=== PATIENT | male | born 1945 | race Caucasian/White ===

== ENCOUNTER → 2018-07-16 07:18 | Outpatient (CLI) | payer MEDICARE, OTHER, SELFPAY ==
--- NOTE | 2018-07-16 13:04 | PFTCOMP ---
COMPLETE PULMONARY FUNCTION TEST INTERPRETATION Brief HPI: Patient is a 73 year old male, currently under the care of Dr. Brown, who presents to [facility] for complete pulmonary function tests secondary to diagnosis of dyspnea. Respiratory therapist reports good effort and reproducible results. Interpretation: Forced expiration spirometry shows no large airways obstructive ventilatory defect with an FEV1 of 118% predicted. There is no significant bronchodilator response by strict ATS criteria. Spirograms are of good quality and plateau normally. The respiratory flow volume loop shows a normal pattern. Lung volumes by body plethysmography show a normal total lung capacity at 7.72 L, 115% predicted. All other lung volumes are within normal limits. Diffusion capacity by carbon monoxide is normal at 119% predicted. The airway resistance is normal. No previous pulmonary function tests were available for review. Impression: Normal pulmonary function testing
--- NOTE | 2018-07-16 13:09 | PFTCOMP_ITS ---
COMPLETE PULMONARY FUNCTION TEST INTERPRETATION Brief HPI: Patient is a 73 year old male, currently under the care of Dr. Brown, who presents to [facility] for complete pulmonary function tests secondary to diagnosis of dyspnea. Respiratory therapist reports good effort and reproducible results. Interpretation: Forced expiration spirometry shows no large airways obstructive ventilatory defect with an FEV1 of 118% predicted. There is no significant bronchodilator response by strict ATS criteria. Spirograms are of good quality and plateau normally. The respiratory flow volume loop shows a normal pattern. Lung volumes by body plethysmography show a normal total lung capacity at 7.72 L, 115% predicted. All other lung volumes are within normal limits. Diffusion capacity by carbon monoxide is normal at 119% predicted. The airway resistance is normal. No previous pulmonary function tests were available for review. Impression: Normal pulmonary function testing
== END ==
DX: R06.02 Shortness of breath (principal)
CPT/HCPCS: 94060; 94726; 94729

== ENCOUNTER → 2018-07-25 11:53 | Outpatient (CLI) | payer MEDICARE, OTHER, SELFPAY ==
[2018-07-25 12:57] LABS: PSA,Total- Diagnostic 3.72 ng/mL (0.0-4.0)
== END ==
PROVIDERS: Referring Provider Nurse Practitioner Adult Health; Visit Provider Nurse Practitioner Adult Health
DX: R97.20 Elevated prostate specific antigen [PSA] (principal)
CPT/HCPCS: 36415; 84153

== ENCOUNTER 2020-05-10 21:25 | Observation (INO) | payer MEDICARE, OTHER, SELFPAY ==
[2020-04-09 11:07] VITALS: BMI 34.3
[2020-05-10 20:24] VITALS: BMI 33.5
[2020-05-10 20:25] VITALS: BP 157/77; PULSE 75; RESP 16; TEMP 36.4; O2SAT 93
[2020-05-10 20:31] VITALS: BMI 33.5
[2020-05-10 21:47] VITALS: BMI 33.5
[2020-05-10] MEDS: 0.9% Normal Saline 1,000 ML 50 ML IV (23:49)
[2020-05-11] VITALS (10 sets, daily range): BP systolic 123–151; BP diastolic 58–84; PULSE 53–93; RESP 16–18; TEMP 36.1–37.3; O2SAT 93–96; BMI 33.5
--- NOTE | 2020-05-11 05:00 | RAD_ITS ---
STUDY: X-RAY - ABDOMEN/PELVIS REASON FOR EXAM: Male, 75 years old. LT URETERAL STONE TECHNIQUE: Single AP view of the abdomen / pelvis. COMPARISON: None. FINDINGS: Normal visualized lung bases. There is a moderate amount of colonic fecal material. There is a 7.7 mm calculus in the proximal portion of the left ureter just distal to the ureteropelvic junction. Normal soft tissue structures. There are diffuse degenerative changes of the visualized lumbar spine. Prior bilateral hip replacements. RAD/Abdomen Single View IMPRESSION: 7.7 mm calculus in the proximal left ureter in the region of the ureteropelvic junction. Electronically Signed: Yohannes Partida MD at 8:37 EST , Service support ,
[2020-05-11 05:43] LABS: Hematocrit 40.3 % (40-54); Hemoglobin 13.3 g/dL (13.0-16.5); Mean Corpuscular Hgb 31.7 pg (27.0-32.0); Mean Corpuscular Volume 96.2 fL (80-94); Mean Platelet Vol. 9.5 fl (6.2-12.0); Platelet Count 169 K/mm3 (150-450); RBC Distribution Width CV 12.9 % (11.6-14.6); RBC Distribution Width SD 46.2 fl (35.1-43.9); Red Blood Count 4.19 M/mm3 (4.6-6.2)
--- NOTE | 2020-05-11 06:00 | EKG12_ITS ---
Test Reason : PRE-OP Blood Pressure : / mmHG Vent. Rate : 057 BPM Atrial Rate : 057 BPM P-R Int : 152 ms QRS Dur : 096 ms QT Int : 470 ms P-R-T Axes : 045 027 097 degrees QTc Int : 457 ms Sinus bradycardia Inferior infarct , age undetermined , cannot be excluded Abnormal ECG Confirmed by ZENY MARINA, JOSSELINE ([id number]), manuscript editor CAILIN CASEY ([id number]) on 05/12/2020 9:33:16 AM Referred By: Ty Toscano Confirmed By:JOSSELINE MOURA MD
[2020-05-11 06:09] LABS: Anion Gap 7 (5-15); BUN 11 mg/dL (7-18); BUN/Creat Ratio 12.4 RATIO (10-20); Calcium,Total 8.8 mg/dL (8.5-10.1); Chloride 109 mmol/L (98-107); Creatinine, Serum 0.89 mg/dL (0.70-1.30); EST Glomerular Filtration Rate 89 mL/min (>60); Est Glom Filt Rate - Afr Amer 108 mL/min (>60); Estimated Creatinine Clearance 77.56 ml/min; Glucose 103 mg/dL (74-106); Potassium 3.8 mmol/L (3.5-5.1); Sodium Level 141 mmol/L (136-145); Thyroid Stim Hormone (TSH) 3.69 uIU/mL (0.358-3.74)
--- NOTE | 2020-05-11 07:23 | PCM.HP.STD ---
Problem List (1) Left ureteral calculus Status: Acute (2) Right renal mass Status: Acute History of Present Illness Date of Admission: 05/10/20 Chief Complaint: Admitted for kidney stone and right renal mass. The patient is a 75 year old male who presented to the hospital he has a 10 mm stone in the left UPJ causing obstruction. Also on the CAT scan he demonstrates a large mass in the right kidney consistent with a malignancy. Plan to treat the stone first and then he may require intervention for the mid renal mass later on. Past Medical History Allergies No Known Allergies Allergy (Verified 04/09/20 11:08) Home Medications: Ambulatory Orders Medication Instructions Recorded Acetaminophen [Acetaminophen Extra 1,000 mg PO Q8H PRN PRN 05/10/20 Strength] Amlodipine Besylate/Benazepril 1 ea PO DAILY 05/10/20 [Amlodipine-Benazepril 5-10 mg] Aspirin [Aspirin, Baby] 81 mg PO DAILY@0800 05/10/20 Icosapent Ethyl [Vascepa] 2 gm PO BID 05/10/20 Levothyroxine [Synthroid] 25 mcg PO DAILY 05/10/20 Multivit-Min/FA/Lycopen/Lutein 1 ea PO DAILY 05/10/20 [Centrum Silver Men Tablet] Nitroglycerin (INPATIENT USE) 0.4 mg SUBLINGUAL Q5M PRN 05/10/20 [Nitrostat] Ticagrelor [Brilinta] 60 mg PO BID 05/10/20 Surgical History: no surgical history Smoking Status: Never smoker Tobacco Use: Non-smoker Review of Systems Constitutional: Denies: Chills, Fever, Weight Change HEENT: Denies: Head Aches, Sinus Congestion, Sinus Drainage Cardiovascular: Denies: Chest Pain, Palpitations Respiratory: Denies: Cough, Shortness of breath at rest, Sputum production Gastrointestinal: Denies: Abdominal Pain, Nausea, Vomiting Genitourinary: Denies: Dysuria Musculoskeletal: Denies: Joint Pain, Joint Tenderness Skin: Denies: Rash, Wounds Neurological: Denies: Numbness, Tingling, Focal weakness Psychiatric: Denies: Anxiety, Depression, Homicidal Ideations, Suicidal Ideations Hematologic/ Lymphatic: Denies: Easy Bruising, Easy Bleeding VTE Information - Inpt Only VTE Present on Admission: No - Physical Exam Vitals/I&O's: Vital Signs Temp Pulse Resp BP Pulse Ox 97 F L 53 L 16 123/66 H 96 05/11/20 03:09 05/11/20 03:09 05/11/20 03:09 05/11/20 03:09 05/11/20 03:09 Oxygen Delivery Method CPAP Weight: 109.1 kg Body Mass Index (BMI) 33.5 Intake and Output for Last 24 Hours 05/09/20 05/10/20 05/11/20 23:59 23:59 23:59 Output Total 200 / 200 550 / 550 Balance -200 / -200 -550 / -550 General: Alert, Oriented x3, Cooperative HEENT: Atraumatic, PERRLA, EOMI, Normocephalic Neck: Supple, No JVD, Negative Carotid Bruits Lungs: Clear to auscultation, Normal air movement Cardiovascular: Regular rate, No murmurs Abdomen: Bowel Sounds Present, Soft, Non Tender Extremities: No edema, Capillary Refill Less than 3 Seconds Skin: No rashes, No breakdown Musculoskeletal: No Tenderness to Palpation of Joints or Extremities Neurological: Cranial nerves II-XII grossly intact Psych/Mental Status: Normal Affect, Appropriate Laboratory Results 05/11/20 05:30: WBC 7.0, RBC 4.19 L, Hgb 13.3, Hct 40.3, MCV 96.2 H, MCH 31.7, MCHC 33.0, RDW Std Deviation 46.2 H, RDW Coeff of Sweta 12.9, Plt Count 169, MPV 9.5 05/11/20 05:30: Sodium 141, Potassium 3.8, Chloride 109 H, Carbon Dioxide 25.0, Anion Gap 7, BUN 11, Creatinine 0.89, Estim Creat Clear Calc 77.56, Est GFR (MDRD) Af Amer 108, Est GFR (MDRD) Non-Af 89, BUN/Creatinine Ratio 12.4, Glucose 103, Calcium 8.8, TSH 3.69 Current Medications Acetaminophen (Acetaminophen 500 Mg Tablet) 1,000 mg PO Q8H PRN PRN PRN Reason: pain score 1-4 Amlodipine Besylate (Amlodipine 5 Mg Tablet) 5 mg PO DAILY KOFFI Sodium Chloride () 1,000 mls @ 50 mls/hr IV .Q20H KOFFI Last Admin: 05/10/20 23:49 Dose: 50 mls/hr Documented by: Levothyroxine Sodium (Levothyroxine 25 Mcg Tablet) 25 mcg PO DAILY@0600 [facility] Last Admin: 05/11/20 02:42 Dose: Not Given Documented by: Lisinopril (Lisinopril 10 Mg Tablet) 10 mg PO DAILY [facility] Morphine Sulfate (Morphine 2 Mg/Ml Syringe) 2 mg IV Q3H PRN PRN PRN Reason: pain level 5-10 Multivitamins/Minerals (Multivitamins,Ther W-Minerals [facility]t) [facility] Last Admin: 05/11/20 07:21 Dose: Not Given Documented by: Nitroglycerin (Nitroglycerin (Inpatient Use) 0.4 Mg Tab.Subl) 0.4 mg SUBLINGUAL Q5M PRN PRN Reason: chest pain Ondansetron HCl (Ondansetron 4 Mg/2 Ml Vial) 4 mg IV Q6H PRN PRN PRN Reason: NAUSEA/VOMITING Sodium Chloride (0.9% Saline Lock 10 Ml Syringe) 10 - 40 ml IV UD PRN PRN Reason: SALINE FLUSH Ticagrelor (Ticagrelor 60 Mg Tablet) 60 mg PO BID [facility] Last Admin: 05/11/20 07:21 Dose: Not Given Documented by: Assessment/Plan All Active Problems (Last Reviewed 04/09/20 @ 11:09 by Vanda Taylor) Left ureteral calculus (Acute) Right renal mass (Acute) Contact with or suspected exposure to other viral communicable disease (Acute) Admitted for kidney stone the left side and renal mass plan to take the surgery and place a stent he is on Brilinta and blood thinners so at this point I cannot treat the stone until I get cardiac clearance.
[2020-05-11] MEDS: Multivitamins,Ther W-Minerals Tablet 1 TABLET PO (08:02)
[2020-05-11] MEDS: Lisinopril 10 MG Tablet PO (08:02)
[2020-05-11] MEDS: Levothyroxine 25 MCG TABLET PO (08:02)
[2020-05-11] MEDS: amLODIPine 5 MG Tablet PO (08:03)
--- NOTE | 2020-05-11 13:14 | DCINST_ITS ---
Discharge Diet: Light diet - advance as tolerated Discharge Activity: Return to Normal Activity Call your doctor if your incision/area has: Sudden Increased Bleeding Call your doctor if you observe: Fever of 101 or Higher Suture Line Care: Avoid Pulling/Pushing, Avoid Pinching/Bending Allergies/Adverse Reactions: Allergies No Known Allergies Allergy (Verified 04/09/20 11:08) Medications to take at Discharge Acetaminophen [Acetaminophen Extra Strength] 1,000 mg PO Q8H PRN PRN 05/10/20 Amlodipine Besylate/Benazepril [Amlodipine-Benazepril 5-10 mg] 1 ea PO DAILY 05/10/20 Aspirin [Aspirin, Baby] 81 mg PO DAILY@0800 05/10/20 Icosapent Ethyl [Vascepa] 2 gm PO BID 05/10/20 Levothyroxine [Synthroid] 25 mcg PO DAILY 05/10/20 Multivit-Min/FA/Lycopen/Lutein [Centrum Silver Men Tablet] 1 ea PO DAILY 0 05/10/20 Nitroglycerin (INPATIENT USE) [Nitrostat] 0.4 mg SUBLINGUAL Q5M PRN 05/10/20 Ticagrelor [Brilinta] 60 mg PO BID 05/10/20 Primary Care Physician: Audelia Martinez DO [Primary Care Provider] - Test Results: Test results from this visit will be discussed in further detail at your follow- up appointment, if applicable. Please Follow Up With: Ty Toscano MD - [phone] When: please call to make an appointment.
[2020-05-11] MEDS: Cefazolin 2 GM in 0.9% Normal Saline 100 ML IV (13:16)
--- NOTE | 2020-05-11 13:58 | OP.PCM_ITS ---
Problem List (1) Left ureteral calculus Status: Acute (2) Right renal mass Status: Acute Report of Operation Date of Procedure: 05/11/20 Pre-Operative Diagnosis: left upj stone Post-Operative Diagnosis: same Surgery/Procedure Performed:: cysto and left stent placement and left ESWL Description of Surgical Findings:: Patient presents to the hospital for treatment of a kidney stone with shockwave lithotripsy. In the preoperative area and x-ray was done to confirm the location of the stone. The x-ray was reviewed and the stone location was rev iewed. In the preoperative setting I spoke with the patient regarding the treatment of the stone how the treatment would be conducted and the expectations after surgery. The patient understands there is a risk of bleeding and infection. Also discussed the very rare risk of hematoma or damage to the kidney. We also discussed the risk that the shockwave machine will fail to break the stone adequately and that the patient may need other surgical procedures. We also discussed the possibility that the patient may need a stent after the procedure. After reviewing the procedure with the patient, the patient is signed the consent form all the patient's questions were addressed and was taken back to the operating room for treatment of a kidney stone. Patient was taken back to the operating room, patient was identified by the nursing staff, we identified the side of the treatment and the patient side of treatment had been marked by my initials. The patient underwent general anesthetic and was placed supine on the lithotripter table. We then used fluoroscopy to identify the stone on the side. We then positioned the patient under the lithotripter and we used triangulation technique to identify the location of the stone and then we made sure that the stone was engaged in the F2 focal point of F2 Donier lithoprior machine. Once the patient was positioned appropriately and the stone was identified and placed in the F2 focal point of the lithotripter machine we then proceeded with shockwave lithotripsy. In the beginning the shockwave was delivered at a rate of 90 shocks per minute, we monitor the EKG for any ectopy. The power was slowly increased to 5 kV and subsequently at the 7 kV. We then proceeded with the treatment we move the therapy had around during the treatment to make sure the stone stayed in the F2 focal point during the entire treatment. Once the stone had broken up completely then we stopped the treatment a total of about 3000 shockwaves were delivered to the stone under fluoroscopic guidance. At this point the patient's anesthetic was reversed patient was extubated and taken back to the PACU in stable condition. The patient was given instructions to call the office to make an a follow-up appointment. Patient was taken back to the operating room after induction of general anesthesia, the patient was placed in dorsolithotomy position. The urethra and genitals were prepped and draped in usual sterile fashion. Using a 21 [place]ian rigid cystourethroscope the entire length of the urethra was normal then went into the bladder. Identified the trigone the left and right ureteral orifice. I then cannulated the Left orifice and advanced a wire up into the kidney. I then backloaded a 5 [place]ian open ended catheter over the wire and injected contrast to delineate the anatomy. After the retrograde was performed I then used fluoroscopic images and guidance to advanced a wire up into the kidney and over the 0.038 glidewire I advanced a 6 [place]ian by 26 cm double pigtail stent. I then pulled the 0.038 Glidewire off and the stent coiled in the kidney bladder good position. The bladder was then drained. We confirmed the position of the stent by fluoroscopy. We then used fluoroscopy to identify the stone on the left side. We then positioned the patient under the lithotripter and we used triangulation technique to identify the location of the stone and then we made sure that the stone was engaged in the F2 focal point of F2 Donier lithoprior machine. Once the patient was positioned appropriately and the stone was identified and placed in the F2 focal point of the lithotripter machine we then proceeded with shockwave lithotripsy. In the beginning the shockwave was delivered at a rate of 90 shocks per minute, we monitor the EKG for any ectopy. The power was slowly increased to 5 kV and subsequently at the 7 kV. We then proceeded with the treatment we move the therapy had around during the treatment to make sure the stone stayed in the F2 focal point during the entire treatment. Once the stone had broken up completely then we stopped the treatment a total of about 3000 shockwaves were delivered to the stone under fluoroscopic guidance. At this point the patient's anesthetic was reversed patient was extubated and taken back to the PACU in stable condition. The patient was given instructions to call the office to make an a follow-up appointment. Type of Anesthesia:: General Drains: stent left - Admit VTE Documentation VTE Present on Admission: No VTE Mechan Device Prophylaxis: SCD's
[2020-05-11] MEDS: Lactated Ringers 1,000 ML 100 ML IV (14:29)
== END 2020-05-11 18:08 | disposition home or self-care (01) ==
PROVIDERS: Admitting Provider Urology; Referring Provider Urology; Visit Provider Urology
PROC: (CPT 50590; principal; 2020-05-11 12:50)
DX: N20.2 Calculus of kidney with calculus of ureter (principal); N28.89 Other specified disorders of kidney and ureter; Z79.899 Other long term (current) drug therapy; Z79.82 Long term (current) use of aspirin; E07.9 Disorder of thyroid, unspecified; I10 Essential (primary) hypertension; G47.30 Sleep apnea, unspecified; R00.1 Bradycardia, unspecified
CPT/HCPCS: 00873; 50590; 52332; 36415; 74018; 80048; 84443; 85027; 87426; 93005; 96360; 96361; 99218; J7030; J7120; C1769; G0378; G0379; J2405

== ENCOUNTER → 2020-05-17 14:52 | Outpatient (CLI) | payer MEDICARE, OTHER, SELFPAY ==
[2020-05-11 11:01] VITALS: BMI 33.5
--- NOTE | 2020-05-17 15:24 | RAD_ITS ---
STUDY: X-RAY - ABDOMEN/PELVIS REASON FOR EXAM: Male, 75 years old. Ureteral calculus. TECHNIQUE: Two AP supine views of the abdomen and pelvis. COMPARISON: 05/11/2020 FINDINGS: Normal visualized lung bases. There is elevation right hemidiaphragm. There is an unremarkable bowel gas pattern. There is no demonstrated free abdominal air. The visualized liver, spleen and kidneys are grossly normal in size and morphology. There is now a left ureteral stent. The calculus seen to the left of the L4 vertebra on the previous study is no longer seen. Minimal contrast is seen in the left renal calyces. Normal soft tissue structures. There are no osseous changes. Again seen are degenerative changes of the lumbar spine and bilateral hip replacements. RAD/Abdomen Single View IMPRESSION: Left ureteral stent with absence of the ureteral calculus seen on the earlier study. The remainder of the findings are essentially unchanged. Electronically Signed: Tyshawn Smith DO at 16:30 EST Tel [phone], Service support ,
== END ==
PROVIDERS: Referring Provider Urology; Visit Provider Urology
DX: N20.1 Calculus of ureter (principal)
CPT/HCPCS: 74018

== ENCOUNTER → 2020-06-14 13:03 | Outpatient (CLI) | payer MEDICARE, OTHER, SELFPAY ==
[2020-05-11 11:01] VITALS: BMI 33.5
--- NOTE | 2020-06-14 13:15 | CT_ITS ---
STUDY: CT ABDOMEN AND PELVIS WITHOUT CONTRAST REASON FOR EXAM: Male, 75 years old. CALCULUS OF KIDNEY RADIATION DOSAGE (If Supplied By Facility): CTDIvol = ( 27.18 ) mGy, DLP = ( 1361.60 ) mGycm TECHNIQUE: Transaxial images were obtained from the dome of the diaphragm to the symphysis pubis without oral contrast, and without intravenous contrast. Sagittal and coronal images were reconstructed. Individualized dose optimization techniques were used for this CT. COMPARISON: Comparison is made with prior study dated 03/27/2009. FINDINGS: Mild scarring in the lateral aspect of the right lower lobe. Coronary artery calcification. Normal liver. There are multiple small gallstones. Normal spleen. Normal pancreas. Normal bilateral adrenal glands. There is evidence of a 5.8 cm x 6.3 cm cyst in the upper pole of the right kidney. There are 2, 3 mm nonobstructive calculi in the posterior aspect of the mid and lower pole calyces of the right kidney. There is evidence of a 7.7 cm x 8.7 cm heterogeneous mass in the lateral inferior pole of the right kidney. Punctate calcification is seen within it. A neoplastic process should be ruled out. Normal left kidney. Normal visualized stomach. Normal small intestine. Normal colon. The appendix is visualized and appears normal. Normal abdominal aorta. Normal inferior vena cava. Normal retroperitoneum. Normal urinary bladder. Normal abdominal wall. There are diffuse degenerative changes of the visualized lumbar spine. The urinary bladder and prostate are difficult to evaluate due to the beam hardening artifacts from bilateral hip replacement. CT/Abdomen/Pelvis without Cont IMPRESSION: Heterogeneous mass arising from the inferior pole of the right kidney as described. A neoplastic process should BE ruled out. 5.8 cm x 6.3 cm cyst in the upper pole of the right kidney. The heart to tiny nonobstructive calculi in the lower pole calyx of the right kidney. Multiple small gallstones. Electronically Signed: Yohannes Partida MD at 13:44 EDT , Service support ,
== END ==
PROVIDERS: Referring Provider Urology; Visit Provider Urology
DX: N20.0 Calculus of kidney (principal); N28.1 Cyst of kidney, acquired; K80.20 Calculus of gallbladder without cholecystitis without obstruction
CPT/HCPCS: 74176

== ENCOUNTER 2020-06-23 07:31 | Inpatient (IN) | payer MEDICARE, OTHER, SELFPAY ==
[2020-05-11 11:01] VITALS: BMI 33.5
[2020-06-22 10:50] LABS: Prothrombin Time (Protime)PT. 12.4 SECONDS (11.7-14.9)
[2020-06-22 10:51] LABS: Partial Thromboplast Time 29.1 Seconds (24.1-36.2)
[2020-06-22 11:14] LABS: AST(SGOT) 21 U/L (15-37); Alanine Aminotransfer ALT/SGPT 30 U/L (16-61); Albumin, Serum 3.6 g/dL (3.2-5.0); Alkaline Phosphatase 106 U/L (45-117); Bilirubin, Direct 0.15 mg/dL (0.00-0.30); Globulin 3.7 g/dL (2.2-4.2); Protein, Total 7.3 g/dL (6.4-8.2); Thyroid Stim Hormone (TSH) 2.47 uIU/mL (0.358-3.74)
[2020-06-23] VITALS (33 sets, daily range): BP systolic 123–160; BP diastolic 64–97; PULSE 60–142; RESP 16–20; TEMP 36.2–37.2; O2SAT 92–99; BMI 33.6; BMI 33.7; BMI 33.8
[2020-06-23] MEDS: Lactated Ringers 1,000 ML 100 ML IV (06:00)
--- NOTE | 2020-06-23 07:29 | PCM.HP.STD ---
Problem List (1) Right renal mass Status: Acute History of Present Illness Date of Admission: 06/23/20 Chief Complaint: Large right renal mass suspicious for renal cell carcinoma The patient is a 75 year old male with a history of a right large renal mass, recent CAT scan demonstrated that he had left kidney is not curable stones and functioning well is a large mass in his right kidney very suspicious for malignancy the mass is about 8 cm in size so I recommended we proceed with a radical nephrectomy given the very large mass I do not think a partial nephrectomy is indicated and he agrees so we can proceed with a right radical nephrectomy. Past Medical History Allergies No Known Allergies Allergy (Verified 06/23/20 06:07) Home Medications: Ambulatory Orders Medication Instructions Recorded Amlodipine Besylate/Benazepril 1 ea PO DAILY 05/10/20 [Amlodipine-Benazepril 5-10 mg] Aspirin [Aspirin, Baby] 81 mg PO DAILY@0800 05/10/20 Icosapent Ethyl [Vascepa] 2 gm PO BID 05/10/20 Levothyroxine [Synthroid] 25 mcg PO DAILY 05/10/20 Multivit-Min/FA/Lycopen/Lutein 1 ea PO DAILY 05/10/20 [Centrum Silver Men Tablet] Nitroglycerin (INPATIENT USE) 0.4 mg SUBLINGUAL Q5M PRN 05/10/20 [Nitrostat] Ticagrelor [Brilinta] 60 mg PO BID 05/10/20 Rosuvastatin Calcium 40 mg PO DAILY 06/16/20 Surgical History: no surgical history Psychiatric History: No pertinent psych hx Lives: Spouse/ Significant Other Smoking Status: Never smoker Tobacco Use: Non-smoker Alcohol: None Drugs: None - *Family History Maternal History Items: No pertinent history Review of Systems Constitutional: Denies: Chills, Fever, Weight Change HEENT: Denies: Head Aches, Sinus Congestion, Sinus Drainage Cardiovascular: Denies: Chest Pain, Palpitations Respiratory: Denies: Cough, Shortness of breath at rest, Sputum production Gastrointestinal: Denies: Abdominal Pain, Nausea, Vomiting Genitourinary: Denies: Dysuria Musculoskeletal: Denies: Joint Pain, Joint Tenderness Skin: Denies: Rash, Wounds Neurological: Denies: Numbness, Tingling, Focal weakness Psychiatric: Denies: Anxiety, Depression, Homicidal Ideations, Suicidal Ideations Hematologic/ Lymphatic: Denies: Easy Bruising, Easy Bleeding VTE Information - Inpt Only VTE Present on Admission: No VTE Mechan Device Prophylaxis: SCD's - Physical Exam Vitals/I&O's: Vital Signs Temp Pulse Resp BP Pulse Ox 98.4 F 60 18 134/64 H 96 06/23/20 05:45 06/23/20 05:45 06/23/20 05:45 06/23/20 05:45 06/23/20 05:45 Oxygen Delivery Method Room Air Weight: 109.5 kg Body Mass Index (BMI) 33.6 General: Alert, Oriented x3, Cooperative HEENT: Atraumatic, PERRLA, EOMI, Normocephalic Neck: Supple, No JVD, Negative Carotid Bruits Lungs: Clear to auscultation, Normal air movement Cardiovascular: Regular rate, No murmurs Abdomen: Bowel Sounds Present, Soft, Non Tender Extremities: No edema, Capillary Refill Less than 3 Seconds Skin: No rashes, No breakdown Musculoskeletal: No Tenderness to Palpation of Joints or Extremities Neurological: Cranial nerves II-XII grossly intact Psych/Mental Status: Normal Affect, Appropriate Microbiology Past 72 Hours 06/22/20 08:35 Interface Orders SARS-CoV-2 Antigen (Rapid) - Final Laboratory Results 06/22/20 08:47: PT 12.4, INR 1.0, APTT 29.1 06/22/20 08:47: Total Bilirubin 0.50, Direct Bilirubin 0.15, AST 21, ALT 30, Alkaline Phosphatase 106, Total Protein 7.3, Albumin 3.6, Globulin 3.7, TSH 2.47 Current Medications Cefazolin Sodium 2 gm/ Sodium (Chloride) 110 mls @ 150 mls/hr IV PREOP ONE Stop: 06/23/20 08:13 Lactated Ringer's () 1,000 mls @ 100 mls/hr IV .Q10H KOFFI Last Admin: 06/23/20 06:00 Dose: 100 mls/hr Documented by: Assessment/Plan All Active Problems (Last Reviewed 04/09/20 @ 11:09 by Vanda Taylor) Left ureteral calculus (Acute) Right renal mass (Acute) Contact with or suspected exposure to other viral communicable disease (Acute) Plan to proceed with a right radical nephrectomy.
[2020-06-23] MEDS: Cefazolin 2 GM in 0.9% Normal Saline 100 ML IV (07:30)
--- NOTE | 2020-06-23 07:30 | KID_PTH ---
PATIENT: VITO ANAND LOC: [facility] U#:[id number] AGE/SX: 75/M ROOM: [facility] RE06/23/[address]: Dr. Ty Toscano MD : [id number] BED: 1 DIS: 06/27/2020 SPEC #: [id number] RECD: 06/23/20 11:45 STATUS: ESMER REWade #: [id number] ALEJANDRO: 06/23/20 07:[address]: Ty Toscano DEPT: SURGICAL PATHOLOGY RECD BY: Dalila Fuentes ENTERED: 06/23/20 12:44 SP TYPE: KIDNEY OTHR DR: MD Dr. 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 See cancer summary in the comment section. SJ:rg 06/25/2020 COMMENT KIDNEY CANCER SUMMARY Procedure - radical nephrectomy Specimen laterality - right Tumor site - lower pole Tumor size - 8 x 6 x 5 cm Tumor focality - unifocal Histologic type - clear cell renal cell carcinoma Sarcomatoid features - not identified Rhabdoid features - not identified Histologic grade - grade 2/4 (WHO/ISUP grade/Ashley grade) Tumor necrosis - not identified Tumor extension - tumor limited to kidney Margins - margins uninvolved by invasive carcinoma. Lymphvascular invasion - not identified Regional lymph nodes - no lymph nodes submitted or found. Distant metastasis - not applicable Pathologic findings in non-neoplastic kidney - mild interstitial chronic inflammation in the uninvolved kidney adjacent to the tumor. Additional pathologic findings - focal atherosclerotic changes with calcification, renal blood vessels. PATHOLOGIC STAGE: pT2 pNx Mx The above summary is in compliance with [employer] (CAP) Cancer Protocols Checklist and [place] Joint Committee on Cancer (AJCC), Staging Manual, 8th Ed. Case has been reviewed in consultation with Dr. Manzo who concurs with the above diagnosis. IDC:AM MICROSCOPIC DESCRIPTION Slides are reviewed. GROSS DESCRIPTION Received in fixative is one container labeled with the patient's name and designated right kidney. The specimen consists of a right kidney containing a mass and is surrounded by an irregular envelope of fibroadipose tissue. Neoplasm does not extend into perirenal fat which measures up to 3 cm in thickness and it is not present at the soft tissue line of the specimen. The specimen weighs 990 gm and measures 27 x 12 x 7 cm. The kidney measures 14 x 7 x 5 cm. The mass involves the lower portion of the kidney. Dissection of the renal veins, particularly those draining the area of the mass does not show the intravascular presence of the neoplasm. On sectioning, the tumorous mass is roughly spherical and measures 8 x 6 x 5 cm. It is composed of yellowish-orange tissue in which there is focal area of hemorrhage. Necrosis and softening are not seen. The tumor does not invade into the pelviocalyceal system or renal sinus. The tumor is sharply demarcated from the renal parenchyma which appears unremarkable. Satellite nodules of tumor are not present in the renal tissue. The adrenal gland is not present in the specimen. An 11 cm segment of ureter is present and is essentially unremarkable. No lymph node tissue is identified. A focally calcified area is noted in the proximal portion of the renal vessel measuring 1 cm in greatest length. Alteration Specialist sections are submitted as follows: 1??vascular and ureteric resection margins, 2??calcified area in the proximal portion of the renal vessels submitted after decalcification. More dictation will follow after additional fixation. / SJ:carmelina 06/23/20 More sections are submitted as follows: 3-10 - tumor (cassette 3 also contains the perirenal adipose tissue, cassettes 8-10 also contains the tumor and adjacent uninvolved renal parenchymal tissue), 11??uninvolved renal parenchymal tissue and perirenal adipose tissue including inked resection margin, 12 - renal pelvis, renal sinus tissue and ureter. / MYRIAM:carmelina 06/24/20 TC:0 CPT: 15378, 87089
[2020-06-23] MEDS: Bupivacaine Mpf 0.5% 30 ML VIAL (11:00)
--- NOTE | 2020-06-23 11:04 | OP.PCM_ITS ---
Problem List (1) Right renal mass Status: Acute Report of Operation Date of Procedure: 06/23/20 Pre-Operative Diagnosis: Right large renal mass Post-Operative Diagnosis: same Surgery/Procedure Performed:: Laparoscopic robotic assisted right radical nephrectomy Description of Surgical Findings:: Patient presented to [facility] for a laparoscopic robotic assisted radical Right nephrectomy. We talked about the options of management for the patient's renal mass. The patient had a renal mass. We discussed with the patient that there is always a possible metastatic disease development after this procedure and the patient understands that more treatments such as chemotherapy or oral chemotherapy may be necessary for further development of metastatic disease which may not be curable. We discussed the risks of the procedure including the risk of general anesthetic, bleeding, infection, blood transfusion, formation of hernias, recurrence of cancer in the local area, development of lymphoceles, chylous ascites, and lymph fluid collection in the renal bed. After full discussion with the patient, the patient was marked, and the patient was taken back to the operating room. Patient was taken back to the operating room was placed for supine on the table and underwent general endotracheal intubation. A Loving catheter was placed into the bladder. The patient side was recognized and marked. A timeout procedure was performed. I identified the patient the side of the surgery and the surgery that was planned to be performed. Once the patient was under general anesthetic then the patient was placed in modified lateral flank position on the patient and I had the patient's right side up was going to proceed with a radical nephrectomy. I then infiltrated the skin with 1/2 percent Marcaine and a small incision in the skin and use a Veress needle to introduce the Veress needle into the peritoneal cavity and filled the peritoneal cavity with CO2 gas. I then placed the camera trocar under direct visualization. I then placed a right arm robotic trocar. Then if necessary scissors were used to dissect any adhesions. And then the left arm trocar was placed and a fourth robotic trocar was placed. After the trochars were placed I placed an air seal port between the #1 arm and the camera for the clothing sales assistant to use during the case. Then the robot was docked and I placed scissors and prograsp and the robotic arms and proceeded first by incising the white line of Toldt and reflecting the colon off the kidney I started superiorly above the kidney and worked all the way inferiorly after the colon was completely reflected off the kidneys fascia was grabbed and elevated and we started reflecting the mesentery of the colon off the kidney until I was able to get underneath the kidney and the inferior tail of the Gerota's fascia and I could see the gonadal vein and the ureter I went underneath the gonadal vein and the ureter and then start tracing up towards the hilum of the kidney. At this point then the fourth arm was docked and used the long Raptor on the fourth arm to allow retraction of the kidney superiorly this allowed me to use the right and left arm to then continue the meticulous dissection toward the renal hilum it came across the gonadal vein and this was taken with clips. And then came upon the duodenum and the duodenum was sharply dissected off the inferior vena cava this allowed to see the inferior vena cava and also the large renal vein. Then behind the renal vein I dissected extensive and meticulous dissection was done to identify the main renal artery and several branches these were taken with clips with 2 clips down and one clip up and transected. After this meticulous dissection I made sure all the arterial inflow was taken and then the renal vein was nice and lax and then I placed 2 clips down to 1 clips up in the renal vein and transected the vein, then went superiorly and left the adrenal gland in place and dissected between the liver and the Gerota's fascia all the way superiorly. I then reflected the kidney off the lateral wall with electrocautery using such sharp dissection all the way down to the tail of the Gerota's fascia then came across the Gerota's fascia with an Endo THOMAS staple to staple the gonadal vein and the ureter and the fat and the inferior portion of the tail of the water taxi driver's fascia then the kidney was further reflected off the lateral sidewall working away all the way superiorly until I reached the upper part of the kidney and used clips generously to control lymphatics and any small perforating blood vessels. Then finally the entire kidney within the throat fascia was free. At this point the robot was undocked. I then scrubbed in at the bedside and via the inferior fourth arm robotic trocar I placed a 15 mm Endo Catch bag and placed the specimen within the Endo Catch bag we then and made the extraction site larger around the port site and then extracted the sp ecimen within the bag. The extraction site was then closed with 0 Vicryl in 2 layers. I then reinspected the hilum of the dissection and there was no bleeding and no significant accumulation of blood within the abdominal cavity I irrigated the abdomen copiously and then FloSeal was placed near the adrenal bed to control any minor oozing from the adrenal gland. I then closed our camera trocar with a Kendall Peres stitch and then a closer air seal port trocar with a Kendall Peres stitch. Then the pneumoperitoneum was released and the and all the incisions were closed in 2 layers with 4-0 Monocryl stitches. Sponges and needles were accounted for. Patient's anesthetic was reversed and extubated and taken to the PACU in stable condition blood loss was minimal. Type of Anesthesia:: General Drains: loving - Admit VTE Documentation VTE Present on Admission: No VTE Mechan Device Prophylaxis: SCD's
--- NOTE | 2020-06-23 11:28 | EKG12_ITS ---
Test Reason : POST OP Blood Pressure : / mmHG Vent. Rate : 074 BPM Atrial Rate : 074 BPM P-R Int : 168 ms QRS Dur : 098 ms QT Int : 456 ms P-R-T Axes : 045 025 048 degrees QTc Int : 506 ms Normal sinus rhythm Inferior infarct , age undetermined , cannot be excluded Prolonged QT Abnormal ECG Confirmed by ZENY MARINA, JOSSELINE ([id number]), slot editor CAILIN CASEY ([id number]) on 07/01/2020 11:36:29 AM Referred By: Ty Toscano Confirmed By:JOSSELINE MOURA MD
[2020-06-23 11:59] LABS: Anion Gap 8 (5-15); BUN 8 mg/dL (7-18); BUN/Creat Ratio 8.3 RATIO (10-20); Calcium,Total 9.1 mg/dL (8.5-10.1); Chloride 106 mmol/L (98-107); Creatinine, Serum 0.96 mg/dL (0.70-1.30); EST Glomerular Filtration Rate 81 mL/min (>60); Est Glom Filt Rate - Afr Amer 98 mL/min (>60); Glucose 196 mg/dL (74-106); Magnesium 2.1 mg/dL (1.6-2.6); Potassium 3.4 mmol/L (3.5-5.1); Sodium Level 138 mmol/L (136-145)
[2020-06-23] MEDS: dilTIAZem 25 MG/5 ML Vial IV BOLUS ×3 (12:32→12:43)
[2020-06-23] MEDS: Lactated Ringers 1,000 ML 125 ML IV ×2 (12:50→19:36)
--- NOTE | 2020-06-23 13:48 | SUR.PHASEI ---
PATIENT ARRIVED TO PACU 1124, NOTED TO BE IN AFIB w/ RVR, HR 130-150'S. CALLED FOR STAT EKG TO CONFIRM. TIFFANIE REYNOLDS PROOF CLERK, AND MARINO PAZ STUDENT, BOTH STATE PATIENT WAS IN SINUS RHYTHM JUST PRIOR TO TRANSPORT FROM O.R. TO PACU. PATIENT AROUSABLE, HAS REPEATEDLY DENIED ANY CHEST PAIN, SHORTNESS OF BREATH, NAUSEA, PALPITATIONS. ONLY C/O IS RIGHT ABDOMINAL PAIN UPON AWAKENING FROM RIGHT TOTAL NEPHRECTOMY. O2 PLACED, FREQUENT VITAL SIGN MONITORING INITIATED, SEE PRINTOUT OF PACU VITALS. DR RENE WAS CALLED TO THE BEDSIDE, SEE ANESTHESIA RECORD FOR MEDS ADMINISTERED. DR HERRERA CONSULTED AND NOTIFIED DR ARMENTA, CARDIOLOGY. CARDIZEM 15 MG TOTAL IV BOLUS GIVEN, CARDIZEM GTT STARTED PER PROTOCOL ORDERED AT 1246. DR CRAWFORD EVALUATED PATIENT AND SPOKE WITH DR RENE IN PACU AT 1250. AT THIS TIME, OCCASIONAL PERIODS OF SINUS RHYTHM w/ PVC'S NOTED. EKG OBTAINED. PATIENT SLEEPING SOUNDLY, AWAKENS WITH STIMULATION. WAS PREVIOUSLY UPDATED OF THE ABOVE INFORMATION BY DR RAYMOND.
[2020-06-23 14:06] LABS: Albumin, Serum 3.7 g/dL (3.2-5.0)
--- NOTE | 2020-06-23 14:15 | EKG12_ITS ---
Test Reason : POST OP Blood Pressure : / mmHG Vent. Rate : 114 BPM Atrial Rate : 117 BPM P-R Int : 000 ms QRS Dur : 102 ms QT Int : 346 ms P-R-T Axes : 000 035 222 degrees QTc Int : [address] Segment Abnormality: Consider Myocardial Ischemia Confirmed by ZENY MARINA, JOSSELINE ([id number]), commissioning editor CAILIN CASEY ([id number]) on 07/01/2020 11:37:02 AM Referred By: Ty Toscano Confirmed By:JOSSELINE MOURA MD
--- NOTE | 2020-06-23 16:57 | PCM.PROGNOTE ---
Patient Problems: Active and Suspected Problems (Last Reviewed 04/09/20 @ 11:09 by Vanda Taylor) Right renal mass (Acute) Subjective: Patient was seen and examined today in PACU, he underwent a right nephrectomy today and following the surgery, the patient went into atrial fibrillation with RVR-his rate was approximately 150, he was given esmolol, with some slowing of his rate but then he was given adenosine which did not affect the heart rate, and he was given additional esmolol. The time I examined the patient in PACU, he had been put on a Cardizem drip and his heart rate was between 95 and 100, he appeared to be atrial fibrillation. Patient's blood pressure was stable, he was not hypotensive. Patient appeared stable for transfer to PCU under stepdown care on a Cardizem drip. - Physical Exam Vitals/I&O's: Vital Signs Temp Pulse Resp BP Pulse Ox 97.7 F L 69 18 145/77 H 98 06/23/20 15:07 06/23/20 16:15 06/23/20 15:45 06/23/20 16:15 06/23/20 15:45 Oxygen Flow Rate (L/min) 3 Oxygen Delivery Method Nasal Cannula Weight: 109.5 kg Body Mass Index (BMI) 33.7 Intake and Output for Last 24 Hours 06/21/20 06/22/20 06/23/20 23:59 23:59 23:59 Intake Total 1114.50 / 1114.50 Output Total 600 / 600 Balance 514.50 / 514.50 General: No apparent distress, Well developed, - - Patient is somnolent due to being postanesthesia HEENT: Atraumatic, PERRLA, EOMI, Normocephalic Oral: Moist Mucosa Neck: Supple, No JVD, Negative Carotid Bruits, Trachea Midline, Thyroid Normal Size and Texture Lungs: Clear to auscultation, Normal air movement, No rhonchi, No wheeze, No rales Cardiovascular: No murmurs, PMI Normal, Irregular Rate, No rub noted Abdomen: Bowel Sounds Present, Soft, Non Tender, Non-Distended Extremities: No clubbing, No cyanosis, No edema, Capillary Refill Less than 3 Seconds Skin: No rashes, No breakdown Musculoskeletal: No Tenderness to Palpation of Joints or Extremities Neurological: Cranial nerves II-XII grossly intact, Neuro grossly intact Psych/Mental Status: - - Patient is postanesthesia at this time and is somnolent, he does awaken to painful stimuli and some verbal stimuli. Microbiology Past 72 Hours 06/22/20 08:35 Interface Orders SARS-CoV-2 Antigen (Rapid) - Final Laboratory Results 06/23/20 11:40: Sodium 138, Potassium 3.4 L, Chloride 106, Carbon Dioxide 24.0, Anion Gap 8, BUN 8, Creatinine 0.96, Estim Creat Clear Calc 71.90, Est GFR (MDRD) Af Amer 98, Est GFR (MDRD) Non-Af 81, BUN/Creatinine Ratio 8.3 L, Glucose 196 H, Calcium 9.1, Magnesium 2.1 06/23/20 11:40: Troponin I < 0.015, Albumin 3.7 Current Medications Acetaminophen (Acetaminophen 325 Mg Tablet) 325 - 650 mg PO Q4H PRN PRN PRN Reason: pain score 1-10/fever/headache Hydrocodone Bitart/Acetaminophen (Hydrocodone Bitartrate/Apap 5/325 Tablet) 1 - 2 tablet PO Q6H PRN PRN PRN Reason: Pain Score 1-5 Amlodipine Besylate (Amlodipine 5 Mg Tablet) 5 mg PO DAILY [facility] Last Admin: 06/23/20 15:45 Dose: Not Given Documented by: Atorvastatin Calcium (Atorvastatin Calcium 80 Mg Tablet) 80 mg PO QHS [facility] Diltiazem HCl (Diltiazem 25 Mg/5 Ml Vial) 5 - 25 mg IV BOLUS PRN PRN PRN Reason: AFIB RATE CONTROL Last Admin: 06/23/20 12:43 Dose: 5 mg Documented by: Docusate Sodium (Docusate Sodium 100 Mg Capsule) 100 mg PO BID [facility] Lactated Ringer's () 1,000 mls @ 125 mls/hr IV .Q8H [facility] Last Admin: 06/23/20 12:50 Dose: 125 mls/hr Documented by: Levothyroxine Sodium (Levothyroxine 25 Mcg Tablet) 25 mcg PO DAILY@0600 [facility] Lisinopril (Lisinopril 10 Mg Tablet) 10 mg PO DAILY [facility] Last Admin: 06/23/20 15:45 Dose: Not Given Documented by: Magnesium Hydroxide (Magnesium Hydroxide 30 Ml Udc) 15 ml PO DAILY [facility] Metoclopramide HCl (Metoclopramide 10 Mg/2 Ml Vial) 10 mg IV Q8H PRN PRN PRN Reason: Nausea/vomiting Morphine Sulfate (Morphine 2 Mg/Ml Syringe) 2 mg IV Q2H PRN PRN PRN Reason: Pain Score 6-10 Ondansetron HCl (Ondansetron 4 Mg/2 Ml Vial) 4 mg IV Q8H PRN PRN Reason: Nausea Pantoprazole Sodium (Pantoprazole Sodium 20 Mg Tablet) 20 mg PO DAILY [facility] Sodium Chloride (0.9% Saline Lock 10 Ml Syringe) 10 - 40 ml IV UD PRN PRN Reason: SALINE FLUSH Medical Necessity - Tobacco Use Smoking Status: Never smoker Tobacco Use: Non-smoker Assessment/Plan All Active Problems (Last Reviewed 04/09/20 @ 11:09 by Vanda Taylor) Left ureteral calculus (Acute) Right renal mass (Acute) Contact with or suspected exposure to other viral communicable disease (Acute) #1 new onset atrial fibrillation with RVR-currently patient's heart rate appears to be under fair control on a Cardizem drip, he will be placed into stepdown admission on PCU and will be monitored. Patient follows up with a waiter/waitress tourist class as an outpatient, I have decided not to order an echocardiogram at this point. #2 coronary artery disease-this appears to be stable at this time, I will order a set of troponins on the patient #3 right renal carcinoma-status post right nephrectomy #4 hyperlipidemia #5 hypertension Inpatient E&M: 68595 Subs Hosp L2
[2020-06-23] MEDS: Ondansetron 4 MG/2 ML Vial IV (19:36)
[2020-06-23] MEDS: 0.9% Saline Lock 10 ML Syringe IV (19:36)
[2020-06-23] MEDS: Morphine 2 MG/ML Syringe IV (19:36)
[2020-06-23] MEDS: Atorvastatin Calcium 80 MG Tablet PO (21:26)
[2020-06-23] MEDS: Docusate Sodium 100 MG Capsule PO (21:26)
[2020-06-24] VITALS (7 sets, daily range): BP systolic 124–139; BP diastolic 59–79; PULSE 59–74; RESP 16–18; TEMP 36.8–37.5; O2SAT 94–97; BMI 33.8
[2020-06-24] MEDS: Lactated Ringers 1,000 ML 125 ML IV (03:04)
[2020-06-24 05:34] LABS: Hematocrit 38.3 % (40-54); Hemoglobin 12.7 g/dL (13.0-16.5); Mean Corp Hgb Conc 33.2 g/dL (32-36); Mean Corpuscular Hgb 32.2 pg (27.0-32.0); Mean Platelet Vol. 9.5 fl (6.2-12.0); Platelet Count 160 K/mm3 (150-450); RBC Distribution Width CV 12.9 % (11.6-14.6); RBC Distribution Width SD 45.8 fl (35.1-43.9); Red Blood Count 3.95 M/mm3 (4.6-6.2); White Blood Count 12.7 K/mm3 (4.4-11.0)
[2020-06-24 05:55] LABS: Anion Gap 5 (5-15); BUN 13 mg/dL (7-18); BUN/Creat Ratio 11.5 RATIO (10-20); Calcium,Total 8.6 mg/dL (8.5-10.1); Chloride 106 mmol/L (98-107); Creatinine, Serum 1.13 mg/dL (0.70-1.30); EST Glomerular Filtration Rate 67 mL/min (>60); Est Glom Filt Rate - Afr Amer 82 mL/min (>60); Estimated Creatinine Clearance 59.22 ml/min; Glucose 111 mg/dL (74-106); Potassium 3.9 mmol/L (3.5-5.1); Sodium Level 137 mmol/L (136-145)
[2020-06-24] MEDS: Morphine 2 MG/ML Syringe IV (06:14)
[2020-06-24] MEDS: 0.9% Saline Lock 10 ML Syringe IV (06:14)
[2020-06-24] MEDS: Levothyroxine 25 MCG TABLET PO (06:14)
--- NOTE | 2020-06-24 07:42 | PN_ITS ---
Patient Problems: Active and Suspected Problems (Last Reviewed 04/09/20 @ 11:09 by Vanda Taylor) Right renal mass (Acute) Subjective: S/P RIGHT RAD NEPHRECTOMY DOING WELL HEPLOCK IVF AV DIET TO RE TOLERATED - Physical Exam Vitals/I&O's: Vital Signs Temp Pulse Resp BP Pulse Ox 98.6 F 59 L 18 133/71 H 94 06/24/20 06:23 06/24/20 06:55 06/24/20 06:23 06/24/20 06:23 06/24/20 06:23 Oxygen Flow Rate (L/min) 2 Oxygen Delivery Method Room Air Weight: 109.5 kg Body Mass Index (BMI) 33.7 Intake and Output for Last 24 Hours 06/22/20 06/23/20 06/24/20 23:59 23:59 23:59 Intake Total 2300.33 / 2300.33 1133.33 / 1133.33 Output Total 1500 / 1500 175 / 175 Balance 800.33 / 800.33 958.33 / 958.33 General: Alert, Oriented x3, Cooperative HEENT: Atraumatic, PERRLA, EOMI, Normocephalic Neck: Supple, No JVD, Negative Carotid Bruits Lungs: Clear to auscultation, Normal air movement Cardiovascular: Regular rate, No murmurs Abdomen: Bowel Sounds Present, Soft, Non Tender Extremities: No edema, Capillary Refill Less than 3 Seconds Skin: No rashes, No breakdown Musculoskeletal: No Tenderness to Palpation of Joints or Extremities Neurological: Cranial nerves II-XII grossly intact Psych/Mental Status: Normal Affect, Appropriate Microbiology Past 72 Hours 06/22/20 08:35 Interface Orders SARS-CoV-2 Antigen (Rapid) - Final Laboratory Results 06/23/20 11:40: Sodium 138, Potassium 3.4 L, Chloride 106, Carbon Dioxide 24.0, Anion Gap 8, BUN 8, Creatinine 0.96, Estim Creat Clear Calc 71.90, Est GFR (MDRD) Af Amer 98, Est GFR (MDRD) Non-Af 81, BUN/Creatinine Ratio 8.3 L, Glucose 196 H, Calcium 9.1, Magnesium 2.1 06/23/20 11:40: Troponin I < 0.015, Albumin 3.7 06/23/20 17:35: Troponin I 0.034 06/23/20 20:12: Troponin I 0.051 H 06/23/20 23:30: Troponin I 0.057 H 06/24/20 05:06: WBC 12.7 H, RBC 3.95 L, Hgb 12.7 L, Hct 38.3 L, MCV 97.0 H, MCH 32.2 H, MCHC 33.2, RDW Std Deviation 45.8 H, RDW Coeff of Sweta 12.9, Plt Count 160, MPV 9.5 06/24/20 05:06: Sodium 137, Potassium 3.9, Chloride 106, Carbon Dioxide 26.0, Anion Gap 5, BUN 13, Creatinine 1.13, Estim Creat Clear Calc 59.22, Est GFR (MDRD) Af Amer 82, Est GFR (MDRD) Non-Af 67, BUN/Creatinine Ratio 11.5, Glucose 111 H, Calcium 8.6 Current Medications Acetaminophen (Acetaminophen 325 Mg Tablet) 325 - 650 mg PO Q4H PRN PRN PRN Reason: pain score 1-10/fever/headache Hydrocodone Bitart/Acetaminophen (Hydrocodone Bitartrate/Apap 5/325 Tablet) 1 - 2 tablet PO Q6H PRN PRN PRN Reason: Pain Score 1-5 Amlodipine Besylate (Amlodipine 5 Mg Tablet) 5 mg PO DAILY [facility] Last Admin: 06/23/20 15:45 Dose: Not Given Documented by: Atorvastatin Calcium (Atorvastatin Calcium 80 Mg Tablet) 80 mg PO QHS [facility] Last Admin: 06/23/20 21:26 Dose: 80 mg Documented by: Diltiazem HCl (Diltiazem 25 Mg/5 Ml Vial) 5 - 25 mg IV BOLUS PRN PRN PRN Reason: AFIB RATE CONTROL Last Admin: 06/23/20 12:43 Dose: 5 mg Documented by: Docusate Sodium (Docusate Sodium 100 Mg Capsule) 100 mg PO BID [facility] Last Admin: 06/23/20 21:26 Dose: 100 mg Documented by: Levothyroxine Sodium (Levothyroxine 25 Mcg Tablet) 25 mcg PO DAILY@0600 [facility] Last Admin: 06/24/20 06:14 Dose: 25 mcg Documented by: Lisinopril (Lisinopril 10 Mg Tablet) 10 mg PO DAILY [facility] Last Admin: 06/23/20 15:45 Dose: Not Given Documented by: Magnesium Hydroxide (Magnesium Hydroxide 30 Ml Udc) 15 ml PO DAILY [facility] Metoclopramide HCl (Metoclopramide 10 Mg/2 Ml Vial) 10 mg IV Q8H PRN PRN PRN Reason: Nausea/vomiting Morphine Sulfate (Morphine 2 Mg/Ml Syringe) 2 mg IV Q2H PRN PRN PRN Reason: Pain Score 6-10 Last Admin: 06/24/20 06:14 Dose: 2 mg Documented by: Ondansetron HCl (Ondansetron 4 Mg/2 Ml Vial) 4 mg IV Q8H PRN PRN Reason: Nausea Last Admin: 06/23/20 19:36 Dose: 4 mg Documented by: Pantoprazole Sodium (Pantoprazole Sodium 20 Mg Tablet) 20 mg PO DAILY [facility] Sodium Chloride (0.9% Saline Lock 10 Ml Syringe) 10 - 40 ml IV UD PRN PRN Reason: SALINE FLUSH Last Admin: 06/24/20 06:14 Dose: 10 ml Documented by: Medical Necessity - Tobacco Use Smoking Status: Never smoker Tobacco Use: Non-smoker Assessment/Plan All Active Problems (Last Reviewed 04/09/20 @ 11:09 by Vanda Taylor) Left ureteral calculus (Acute) Right renal mass (Acute) Contact with or suspected exposure to other viral communicable disease (Acute) DOING WELL HOME IN A FEW DAYS CARDIAC STABLE
[2020-06-24] MEDS: Lisinopril 10 MG Tablet PO (09:30)
[2020-06-24] MEDS: amLODIPine 5 MG Tablet PO (09:30)
[2020-06-24] MEDS: Pantoprazole Sodium 20 MG Tablet PO (09:30)
[2020-06-24] MEDS: Magnesium Hydroxide 30 ML UDC 15 ML PO (09:30)
[2020-06-24] MEDS: Docusate Sodium 100 MG Capsule PO ×2 (09:30→21:10)
--- NOTE | 2020-06-24 11:15 | CASEMGMT ---
RN DOMENICA Face to Face with patient for initial transition planning/care coordination assessment. RN CM introduced self and role at [facility]. Patient lying in bed, alert and oriented. Patient willing to participate in assessment and is able to answer all questions appropriately. Care providers, pharmacy, and demographics verified. Patient wishes to discharge home, denies need for home health at this time. Patient states he has no further needs or concerns at this time. CM to follow for discharge planning needs that may arise. PCP: [facility] Specialists: Stephanie, funding analyst; Ghassan, certified medical technician assistant; Everton, urologist Preferred Pharmacy: [facility] Insurance: [facility], [employer] Prescription Benefit: yes Living Will/HPOA: none LNOK: Living Arrangements: Patient lives with in a single story home with 3 steps and railing to enter the home. Patient states he is independent at home. Transportation: self/ DME/HHC: Patient states he has shower chair, raised toilet, cane, cpap at home. Patient denies previous HHC or SNF. Disposition Plan: Patient to discharge home with family support and follow-up plans in place. Viki GABRIEL, RN, CM
--- NOTE | 2020-06-24 12:26 | PCM.PROGNOTE ---
Patient Problems: Active and Suspected Problems (Last Reviewed 04/09/20 @ 11:09 by Vanda Taylor) Right renal mass (Acute) Subjective: Patient seen and examined. Denies palpitations, shortness of breath. Pain controlled. No further atrial fibrillation on monitor. - Physical Exam Vitals/I&O's: Vital Signs Temp Pulse Resp BP Pulse Ox 98.2 F 64 16 136/65 H 97 06/24/20 09:26 06/24/20 09:26 06/24/20 09:26 06/24/20 09:26 06/24/20 09:26 Oxygen Flow Rate (L/min) 2 Oxygen Delivery Method Room Air Weight: 241 lb 6.499 oz Body Mass Index (BMI) 33.7 Intake and Output for Last 24 Hours 06/22/20 06/23/20 06/24/20 23:59 23:59 23:59 Intake Total 2300.33 / 2300.33 1764.58 / 1764.58 Output Total 1500 / 1500 175 / 175 Balance 800.33 / 800.33 1589.58 / 1589.58 General: Alert, Oriented x3, Cooperative HEENT: Atraumatic, PERRLA, EOMI, Normocephalic Neck: Supple, No JVD, Negative Carotid Bruits Lungs: Clear to auscultation, Normal air movement Cardiovascular: Regular rate, No murmurs Abdomen: Bowel Sounds Present, Soft, Non Tender, Non-Distended Extremities: No clubbing, No cyanosis, No edema, Capillary Refill Less than 3 Seconds Skin: No rashes, No breakdown, - - Postop dressing intact Musculoskeletal: No Tenderness to Palpation of Joints or Extremities Neurological: Cranial nerves II-XII grossly intact, Neuro grossly intact Psych/Mental Status: Normal Affect, Appropriate Microbiology Past 72 Hours 06/22/20 08:35 Interface Orders SARS-CoV-2 Antigen (Rapid) - Final Laboratory Results 06/23/20 11:40: Troponin I < 0.015, Albumin 3.7 06/23/20 17:35: Troponin I 0.034 06/23/20 20:12: Troponin I 0.051 H 06/23/20 23:30: Troponin I 0.057 H 06/24/20 05:06: WBC 12.7 H, RBC 3.95 L, Hgb 12.7 L, Hct 38.3 L, MCV 97.0 H, MCH 32.2 H, MCHC 33.2, RDW Std Deviation 45.8 H, RDW Coeff of Sweta 12.9, Plt Count 160, MPV 9.5 06/24/20 05:06: Sodium 137, Potassium 3.9, Chloride 106, Carbon Dioxide 26.0, Anion Gap 5, BUN 13, Creatinine 1.13, Estim Creat Clear Calc 59.22, Est GFR (MDRD) Af Amer 82, Est GFR (MDRD) Non-Af 67, BUN/Creatinine Ratio 11.5, Glucose 111 H, Calcium 8.6 Current Medications Acetaminophen (Acetaminophen 325 Mg Tablet) 325 - 650 mg PO Q4H PRN PRN PRN Reason: pain score 1-10/fever/headache Hydrocodone Bitart/Acetaminophen (Hydrocodone Bitartrate/Apap 5/325 Tablet) 1 - 2 tablet PO Q6H PRN PRN PRN Reason: Pain Score 1-5 Amlodipine Besylate (Amlodipine 5 Mg Tablet) 5 mg PO DAILY [facility] Last Admin: 06/24/20 09:30 Dose: 5 mg Documented by: Atorvastatin Calcium (Atorvastatin Calcium 80 Mg Tablet) 80 mg PO QHS [facility] Last Admin: 06/23/20 21:26 Dose: 80 mg Documented by: Diltiazem HCl (Diltiazem 25 Mg/5 Ml Vial) 5 - 25 mg IV BOLUS PRN PRN PRN Reason: AFIB RATE CONTROL Last Admin: 06/23/20 12:43 Dose: 5 mg Documented by: Docusate Sodium (Docusate Sodium 100 Mg Capsule) 100 mg PO BID [facility] Last Admin: 06/24/20 09:30 Dose: 100 mg Documented by: Levothyroxine Sodium (Levothyroxine 25 Mcg Tablet) 25 mcg PO DAILY@0600 [facility] Last Admin: 06/24/20 06:14 Dose: 25 mcg Documented by: Lisinopril (Lisinopril 10 Mg Tablet) 10 mg PO DAILY [facility] Last Admin: 06/24/20 09:30 Dose: 10 mg Documented by: Magnesium Hydroxide (Magnesium Hydroxide 30 Ml Udc) 15 ml PO DAILY [facility] Last Admin: 06/24/20 09:30 Dose: 15 ml Documented by: Metoclopramide HCl (Metoclopramide 10 Mg/2 Ml Vial) 10 mg IV Q8H PRN PRN PRN Reason: Nausea/vomiting Morphine Sulfate (Morphine 2 Mg/Ml Syringe) 2 mg IV Q2H PRN PRN PRN Reason: Pain Score 6-10 Last Admin: 06/24/20 06:14 Dose: 2 mg Documented by: Ondansetron HCl (Ondansetron 4 Mg/2 Ml Vial) 4 mg IV Q8H PRN PRN Reason: Nausea Last Admin: 06/23/20 19:36 Dose: 4 mg Documented by: Pantoprazole Sodium (Pantoprazole Sodium 20 Mg Tablet) 20 mg PO DAILY [facility] Last Admin: 06/24/20 09:30 Dose: 20 mg Documented by: Sodium Chloride (0.9% Saline Lock 10 Ml Syringe) 10 - 40 ml IV UD PRN PRN Reason: SALINE FLUSH Last Admin: 06/24/20 06:14 Dose: 10 ml Documented by: Medical Necessity - Tobacco Use Smoking Status: Never smoker Tobacco Use: Non-smoker Assessment/Plan All Active Problems (Last Reviewed 04/09/20 @ 11:09 by Vanda Taylor) Left ureteral calculus (Acute) Right renal mass (Acute) Contact with or suspected exposure to other viral communicable disease (Acute) 1. New onset atrial fibrillation, postoperatively-initially placed on Cardizem drip. Converted to sinus rhythm. Has since remained in normal sinus rhythm. No further work-up at this time. 2. CAD-stable. On Brilinta, statin, aspirin, Vascepa. 3. Large right renal mass status post right radical nephrectomy-management per urology. 4. Hypertension-stable, on amlodipine/benazepril. 5. Hyperlipidemia-on statin, Vascepa. 6. Hypothyroidism-continue Synthroid regimen. TSH normal. DVT prophylaxis-SCDs This patient was seen by JOSIE Turner under the supervision of Dr. Leiva.
[2020-06-24] MEDS: HYDROcodone Bitartrate/Apap 5/325 Tablet PO (21:10)
[2020-06-24] MEDS: Atorvastatin Calcium 80 MG Tablet PO (21:10)
[2020-06-25] VITALS (7 sets, daily range): BP systolic 102–150; BP diastolic 54–82; PULSE 60–76; RESP 13–18; TEMP 36.3–37; O2SAT 93–96
[2020-06-25] MEDS: Levothyroxine 25 MCG TABLET PO (05:35)
[2020-06-25] MEDS: Lisinopril 10 MG Tablet PO (08:52)
[2020-06-25] MEDS: Docusate Sodium 100 MG Capsule PO ×2 (08:53→21:07)
[2020-06-25] MEDS: amLODIPine 5 MG Tablet PO (08:53)
[2020-06-25] MEDS: Pantoprazole Sodium 20 MG Tablet PO (08:53)
[2020-06-25] MEDS: Magnesium Hydroxide 30 ML UDC 15 ML PO (08:56)
[2020-06-25] MEDS: Acetaminophen 325 MG Tablet PO ×3 (09:08→21:07)
--- NOTE | 2020-06-25 12:44 | PN_ITS ---
Patient Problems: Active and Suspected Problems (Last Reviewed 04/09/20 @ 11:09 by Vanda Taylor) Right renal mass (Acute) Subjective: Patient seen and examined. No acute events overnight. No complaints from medical standpoint. - Physical Exam Vitals/I&O's: Vital Signs Temp Pulse Resp BP Pulse Ox 97.4 F L 76 18 141/82 H 93 06/25/20 08:51 06/25/20 08:51 06/25/20 08:51 06/25/20 08:51 06/25/20 08:51 Oxygen Flow Rate (L/min) 2 Oxygen Delivery Method Room Air Weight: 241 lb 6.499 oz Body Mass Index (BMI) 33.7 Intake and Output for Last 24 Hours 06/23/20 06/24/20 06/25/20 23:59 23:59 23:59 Intake Total 2300.33 / 2300.33 1764.58 / 1764.58 Output Total 1500 / 1500 875 / 1200 925 / 925 Balance 800.33 / 800.33 889.58 / 564.58 -925 / -925 General: Alert, Oriented x3, Cooperative HEENT: Atraumatic, PERRLA, EOMI, Normocephalic Neck: Supple, No JVD, Negative Carotid Bruits Lungs: Clear to auscultation, Normal air movement Cardiovascular: Regular rate, No murmurs Abdomen: Bowel Sounds Present, Soft, Non Tender Extremities: No clubbing, No cyanosis, No edema, Capillary Refill Less than 3 Seconds Skin: No rashes, No breakdown, - - Postop dressing intact Musculoskeletal: No Tenderness to Palpation of Joints or Extremities Neurological: Cranial nerves II-XII grossly intact, Neuro grossly intact Psych/Mental Status: Normal Affect, Appropriate Microbiology Past 72 Hours 06/22/20 08:35 Interface Orders SARS-CoV-2 Antigen (Rapid) - Final Current Medications Acetaminophen (Acetaminophen 325 Mg Tablet) 325 - 650 mg PO Q4H PRN PRN PRN Reason: pain score 1-10/fever/headache Last Admin: 06/25/20 09:08 Dose: 650 mg Documented by: Hydrocodone Bitart/Acetaminophen (Hydrocodone Bitartrate/Apap 5/325 Tablet) 1 - 2 tablet PO Q6H PRN PRN PRN Reason: Pain Score 1-5 Last Admin: 06/24/20 21:10 Dose: 1 tablet Documented by: Amlodipine Besylate (Amlodipine 5 Mg Tablet) 5 mg PO DAILY [facility] Last Admin: 06/25/20 08:53 Dose: 5 mg Documented by: Atorvastatin Calcium (Atorvastatin Calcium 80 Mg Tablet) 80 mg PO QHS [facility] Last Admin: 06/24/20 21:10 Dose: 80 mg Documented by: Diltiazem HCl (Diltiazem 25 Mg/5 Ml Vial) 5 - 25 mg IV BOLUS PRN PRN PRN Reason: AFIB RATE CONTROL Last Admin: 06/23/20 12:43 Dose: 5 mg Documented by: Docusate Sodium (Docusate Sodium 100 Mg Capsule) 100 mg PO BID [facility] Last Admin: 06/25/20 08:53 Dose: 100 mg Documented by: Levothyroxine Sodium (Levothyroxine 25 Mcg Tablet) 25 mcg PO DAILY@0600 [facility] Last Admin: 06/25/20 05:35 Dose: 25 mcg Documented by: Lisinopril (Lisinopril 10 Mg Tablet) 10 mg PO DAILY [facility] Last Admin: 06/25/20 08:52 Dose: 10 mg Documented by: Magnesium Hydroxide (Magnesium Hydroxide 30 Ml Udc) 15 ml PO DAILY [facility] Last Admin: 06/25/20 08:56 Dose: 15 ml Documented by: Metoclopramide HCl (Metoclopramide 10 Mg/2 Ml Vial) 10 mg IV Q8H PRN PRN PRN Reason: Nausea/vomiting Morphine Sulfate (Morphine 2 Mg/Ml Syringe) 2 mg IV Q2H PRN PRN PRN Reason: Pain Score 6-10 Last Admin: 06/24/20 06:14 Dose: 2 mg Documented by: Ondansetron HCl (Ondansetron 4 Mg/2 Ml Vial) 4 mg IV Q8H PRN PRN Reason: Nausea Last Admin: 06/23/20 19:36 Dose: 4 mg Documented by: Pantoprazole Sodium (Pantoprazole Sodium 20 Mg Tablet) 20 mg PO DAILY [facility] Last Admin: 06/25/20 08:53 Dose: 20 mg Documented by: Sodium Chloride (0.9% Saline Lock 10 Ml Syringe) 10 - 40 ml IV UD PRN PRN Reason: SALINE FLUSH Last Admin: 06/24/20 06:14 Dose: 10 ml Documented by: Medical Necessity - Tobacco Use Smoking Status: Never smoker Tobacco Use: Non-smoker Assessment/Plan All Active Problems (Last Reviewed 04/09/20 @ 11:09 by Vanda Taylor) Left ureteral calculus (Acute) Right renal mass (Acute) Contact with or suspected exposure to other viral communicable disease (Acute) 1. New onset atrial fibrillation, postoperatively-initially placed on Cardizem drip. Converted to sinus rhythm. Has since remained in normal sinus rhythm. No further work-up at this time. 2. CAD-stable. On Brilinta, statin, aspirin, Vascepa. 3. Large right renal mass status post right radical nephrectomy-management per urology. 4. Hypertension-stable, on amlodipine/benazepril. 5. Hyperlipidemia-on statin, Vascepa. 6. Hypothyroidism-continue Synthroid regimen. TSH normal. DVT prophylaxis-SCDs This patient was seen by JOSIE Turner under the supervision of Dr. Leiva.
[2020-06-25] MEDS: Polyethylene Glycol 3350 17 GM PACKET PO (15:14)
[2020-06-25] MEDS: Atorvastatin Calcium 80 MG Tablet PO (21:07)
[2020-06-26 02:57] VITALS: BP 158/90; PULSE 72; RESP 16; TEMP 36.6; O2SAT 95
[2020-06-26 04:10] VITALS: RESP 15
[2020-06-26] MEDS: Levothyroxine 25 MCG TABLET PO (06:40)
[2020-06-26 08:55] VITALS: BP 119/62; PULSE 76; RESP 18; TEMP 36.9; O2SAT 95
[2020-06-26] MEDS: Pantoprazole Sodium 20 MG Tablet PO (08:56)
[2020-06-26] MEDS: Magnesium Hydroxide 30 ML UDC 15 ML PO (08:56)
[2020-06-26] MEDS: Docusate Sodium 100 MG Capsule PO ×2 (08:56→20:56)
[2020-06-26] MEDS: Polyethylene Glycol 3350 17 GM PACKET PO (08:56)
[2020-06-26] MEDS: amLODIPine 5 MG Tablet PO (08:56)
[2020-06-26] MEDS: Lisinopril 10 MG Tablet PO (08:56)
--- NOTE | 2020-06-26 09:15 | PN_ITS ---
Patient Problems: Active and Suspected Problems (Last Reviewed 04/09/20 @ 11:09 by Vanda Taylor) Right renal mass (Acute) Subjective: stable doing well no BM yet some small gas abd soft not walking enough - Physical Exam Vitals/I&O's: Vital Signs Temp Pulse Resp BP Pulse Ox 98.4 F 76 18 119/62 95 06/26/20 08:55 06/26/20 08:55 06/26/20 08:55 06/26/20 08:55 06/26/20 08:55 Oxygen Flow Rate (L/min) 2 Oxygen Delivery Method Room Air Weight: 109.5 kg Body Mass Index (BMI) 33.7 Intake and Output for Last 24 Hours 06/24/20 06/25/20 06/26/20 23:59 23:59 23:59 Intake Total 1764.58 / 1764.58 200 / 200 Output Total 875 / 1200 1225 / 1425 375 / 375 Balance 889.58 / 564.58 -1225 / -1275 -175 / -175 General: Alert, Oriented x3, Cooperative HEENT: Atraumatic, PERRLA, EOMI, Normocephalic Neck: Supple, No JVD, Negative Carotid Bruits Lungs: Clear to auscultation, Normal air movement Cardiovascular: Regular rate, No murmurs Abdomen: Bowel Sounds Present, Soft, Non Tender Extremities: No edema, Capillary Refill Less than 3 Seconds Skin: No rashes, No breakdown Musculoskeletal: No Tenderness to Palpation of Joints or Extremities Neurological: Cranial nerves II-XII grossly intact Psych/Mental Status: Normal Affect, Appropriate Current Medications Acetaminophen (Acetaminophen 325 Mg Tablet) 325 - 650 mg PO Q4H PRN PRN PRN Reason: pain score 1-10/fever/headache Last Admin: 06/25/20 21:07 Dose: 650 mg Documented by: Hydrocodone Bitart/Acetaminophen (Hydrocodone Bitartrate/Apap 5/325 Tablet) 1 - 2 tablet PO Q6H PRN PRN PRN Reason: Pain Score 1-5 Last Admin: 06/24/20 21:10 Dose: 1 tablet Documented by: Amlodipine Besylate (Amlodipine 5 Mg Tablet) 5 mg PO DAILY [facility] Last Admin: 06/26/20 08:56 Dose: 5 mg Documented by: Atorvastatin Calcium (Atorvastatin Calcium 80 Mg Tablet) 80 mg PO QHS [facility] Last Admin: 06/25/20 21:07 Dose: 80 mg Documented by: Diltiazem HCl (Diltiazem 25 Mg/5 Ml Vial) 5 - 25 mg IV BOLUS PRN PRN PRN Reason: AFIB RATE CONTROL Last Admin: 06/23/20 12:43 Dose: 5 mg Documented by: Docusate Sodium (Docusate Sodium 100 Mg Capsule) 100 mg PO BID [facility] Last Admin: 06/26/20 08:56 Dose: 100 mg Documented by: Levothyroxine Sodium (Levothyroxine 25 Mcg Tablet) 25 mcg PO DAILY@0600 [facility] Last Admin: 06/26/20 06:40 Dose: 25 mcg Documented by: Lisinopril (Lisinopril 10 Mg Tablet) 10 mg PO DAILY [facility] Last Admin: 06/26/20 08:56 Dose: 10 mg Documented by: Magnesium Hydroxide (Magnesium Hydroxide 30 Ml Udc) 15 ml PO DAILY [facility] Last Admin: 06/26/20 08:56 Dose: 15 ml Documented by: Metoclopramide HCl (Metoclopramide 10 Mg/2 Ml Vial) 10 mg IV Q8H PRN PRN PRN Reason: Nausea/vomiting Morphine Sulfate (Morphine 2 Mg/Ml Syringe) 2 mg IV Q2H PRN PRN PRN Reason: Pain Score 6-10 Last Admin: 06/24/20 06:14 Dose: 2 mg Documented by: Ondansetron HCl (Ondansetron 4 Mg/2 Ml Vial) 4 mg IV Q8H PRN PRN Reason: Nausea Last Admin: 06/23/20 19:36 Dose: 4 mg Documented by: Pantoprazole Sodium (Pantoprazole Sodium 20 Mg Tablet) 20 mg PO DAILY [facility] Last Admin: 06/26/20 08:56 Dose: 20 mg Documented by: Polyethylene Glycol (Polyethylene Glycol 3350 17 Gm Packet) 17 gm PO DAILY [facility] Last Admin: 06/26/20 08:56 Dose: 17 gm Documented by: Sodium Chloride (0.9% Saline Lock 10 Ml Syringe) 10 - 40 ml IV UD PRN PRN Reason: SALINE FLUSH Last Admin: 06/24/20 06:14 Dose: 10 ml Documented by: Medical Necessity - Tobacco Use Smoking Status: Never smoker Tobacco Use: Non-smoker Assessment/Plan All Active Problems (Last Reviewed 04/09/20 @ 11:09 by Vanda Taylor) Left ureteral calculus (Acute) Right renal mass (Acute) Contact with or suspected exposure to other viral communicable disease (Acute) plan for discharge tomorrow.
[2020-06-26] MEDS: HYDROcodone Bitartrate/Apap 5/325 Tablet PO (09:41)
[2020-06-26] MEDS: Bisacodyl 10 MG Suppository RC (14:51)
[2020-06-26] MEDS: 0.9% Saline Lock 10 ML Syringe IV ×2 (14:54→20:47)
[2020-06-26] MEDS: Acetaminophen 325 MG Tablet PO ×2 (14:54→20:57)
[2020-06-26 14:55] VITALS: BP 124/67; PULSE 72; RESP 18; TEMP 36.6; O2SAT 97
[2020-06-26 20:42] VITALS: BP 110/74; PULSE 64; RESP 16; TEMP 36.9; O2SAT 96
[2020-06-26] MEDS: Atorvastatin Calcium 80 MG Tablet PO (20:56)
[2020-06-27 02:57] VITALS: BP 144/75; PULSE 64; RESP 18; TEMP 36.4; O2SAT 97
[2020-06-27] MEDS: Levothyroxine 25 MCG TABLET PO (05:12)
--- NOTE | 2020-06-27 08:39 | DCINST_ITS ---
Discharge Diet: Light diet - advance as tolerated Discharge Activity: May not drive while taking narcotic pain medications., May Shower Call your doctor if your incision/area has: Sudden Increased Bleeding Call your doctor if you observe: Fever of 101 or Higher Suture Line Care: Avoid Pulling/Pushing, Avoid Pinching/Bending Additional Instructions: resume all your medications. Allergies/Adverse Reactions: Allergies No Known Allergies Allergy (Verified 06/23/20 06:07) Medications to take at Discharge Amlodipine Besylate/Benazepril [Amlodipine-Benazepril 5-10 mg] 1 ea PO DAILY 05/10/20 Aspirin [Aspirin, Baby] 81 mg PO DAILY@0800 05/10/20 Icosapent Ethyl [Vascepa] 2 gm PO BID 05/10/20 Levothyroxine [Synthroid] 25 mcg PO DAILY 05/10/20 Multivit-Min/FA/Lycopen/Lutein [Centrum Silver Men Tablet] 1 ea PO DAILY 05/10/20 Nitroglycerin (INPATIENT USE) [Nitrostat] 0.4 mg SUBLINGUAL Q5M PRN 05/10/20 Ticagrelor [Brilinta] 60 mg PO BID 05/10/20 Rosuvastatin Calcium 40 mg PO DAILY 06/16/20 Docusate Sodium [Colace] 100 mg PO BID #20 capsule 06/26/20 Hydrocodone Bitart/Apap 5-325 [[place] 5MG-325MG] 1 tablet PO Q4H PRN PRN 7 Days #14 tab 06/26/20 The following prescriptions were given: Docusate Sodium [Colace] 100 mg PO BID #20 capsule Transmission Status: Received by [facility] Hydrocodone Bitart/Apap 5-325 [[place] 5MG-325MG] 1 tablet PO Q4H PRN PRN 7 Days #14 tab PRN Reason: Pain Transmission Status: Received by [facility] Primary Care Physician: Shree Pang DO [Primary Care Provider] - Test Results: Test results from this visit will be discussed in further detail at your follow- up appointment, if applicable. Please Follow Up With: yT Toscano MD When: in 2 weeks, please call to make an appointment.
--- NOTE | 2020-06-27 08:39 | PCM.DC.SUM ---
Discharge Date and Diagnosis - Problem List Patient Problems: Active and Suspected Problems (Last Reviewed 04/09/20 @ 11:09 by Vanda Taylor) Right renal mass (Acute) Date of Admission: 06/23/20 Date of Discharge: 06/27/20 - Primary Discharge Diagnosis Acute Problems: Active Problems (Last Reviewed 04/09/20 @ 11:09 by Vanda Taylor) Right renal mass (Acute) Hospital Course and Treatment Operations: - - right radical nephrectomy Summary of Care Provided: The patient is a 75 year old male with large right renal mass s/p right radical nephrectomy for suspected Renal cell carcinoma post op had AFib in the pacu, the converted to sinus rhythm and since then stable, will go home today and resume all his medications including his blood thinners. Patient Problems: Active and Suspected Problems (Last Reviewed 04/09/20 @ 11:09 by Vanda Taylor) Right renal mass (Acute) - Physical Exam Vitals/I&O's: Vital Signs Temp Pulse Resp BP Pulse Ox 97.6 F L 64 18 144/75 H 97 06/27/20 02:57 06/27/20 02:57 06/27/20 02:57 06/27/20 02:57 06/27/20 02:57 Oxygen Flow Rate (L/min) 2 Oxygen Delivery Method Room Air Weight: 109.5 kg Body Mass Index (BMI) 33.7 Intake and Output for Last 24 Hours 06/25/20 06/26/20 06/27/20 23:59 23:59 23:59 Intake Total 1480 / 1780 450 / 450 Output Total 1225 / 1425 625 / 625 375 / 375 Balance -1225 / -1275 855 / 1155 75 / 75 General: Alert, Oriented x3, Cooperative HEENT: Atraumatic, PERRLA, EOMI, Normocephalic Neck: Supple, No JVD, Negative Carotid Bruits Lungs: Clear to auscultation, Normal air movement Cardiovascular: Regular rate, No murmurs Abdomen: Bowel Sounds Present, Soft, Non Tender Extremities: No edema, Capillary Refill Less than 3 Seconds Skin: No rashes, No breakdown Musculoskeletal: No Tenderness to Palpation of Joints or Extremities Neurological: Cranial nerves II-XII grossly intact Psych/Mental Status: Normal Affect, Appropriate Current Medications Acetaminophen (Acetaminophen 325 Mg Tablet) 325 - 650 mg PO Q4H PRN PRN PRN Reason: pain score 1-10/fever/headache Last Admin: 06/26/20 20:57 Dose: 650 mg Documented by: Hydrocodone Bitart/Acetaminophen (Hydrocodone Bitartrate/Apap 5/325 Tablet) 1 - 2 tablet PO Q6H PRN PRN PRN Reason: Pain Score 1-5 Last Admin: 06/26/20 09:41 Dose: 2 tablet Documented by: Amlodipine Besylate (Amlodipine 5 Mg Tablet) 5 mg PO DAILY [facility] Last Admin: 06/26/20 08:56 Dose: 5 mg Documented by: Atorvastatin Calcium (Atorvastatin Calcium 80 Mg Tablet) 80 mg PO QHS [facility] Last Admin: 06/26/20 20:56 Dose: 80 mg Documented by: Diltiazem HCl (Diltiazem 25 Mg/5 Ml Vial) 5 - 25 mg IV BOLUS PRN PRN PRN Reason: AFIB RATE CONTROL Last Admin: 06/23/20 12:43 Dose: 5 mg Documented by: Docusate Sodium (Docusate Sodium 100 Mg Capsule) 100 mg PO BID [facility] Last Admin: 06/26/20 20:56 Dose: 100 mg Documented by: Levothyroxine Sodium (Levothyroxine 25 Mcg Tablet) 25 mcg PO DAILY@0600 [facility] Last Admin: 06/27/20 05:12 Dose: 25 mcg Documented by: Lisinopril (Lisinopril 10 Mg Tablet) 10 mg PO DAILY [facility] Last Admin: 06/26/20 08:56 Dose: 10 mg Documented by: Magnesium Hydroxide (Magnesium Hydroxide 30 Ml Udc) 15 ml PO DAILY [facility] Last Admin: 06/26/20 08:56 Dose: 15 ml Documented by: Metoclopramide HCl (Metoclopramide 10 Mg/2 Ml Vial) 10 mg IV Q8H PRN PRN PRN Reason: Nausea/vomiting Morphine Sulfate (Morphine 2 Mg/Ml Syringe) 2 mg IV Q2H PRN PRN PRN Reason: Pain Score 6-10 Last Admin: 06/24/20 06:14 Dose: 2 mg Documented by: Ondansetron HCl (Ondansetron 4 Mg/2 Ml Vial) 4 mg IV Q8H PRN PRN Reason: Nausea Last Admin: 06/23/20 19:36 Dose: 4 mg Documented by: Pantoprazole Sodium (Pantoprazole Sodium 20 Mg Tablet) 20 mg PO DAILY [facility] Last Admin: 06/26/20 08:56 Dose: 20 mg Documented by: Polyethylene Glycol (Polyethylene Glycol 3350 17 Gm Packet) 17 gm PO DAILY [facility] Last Admin: 06/26/20 08:56 Dose: 17 gm Documented by: Sodium Chloride (0.9% Saline Lock 10 Ml Syringe) 10 - 40 ml IV UD PRN PRN Reason: SALINE FLUSH Last Admin: 06/26/20 20:47 Dose: 10 ml Documented by: Discharge Diet: Light diet - advance as tolerated Discharge Activity: May not drive while taking narcotic pain medications., May Shower Call your doctor if your incision/area has: Sudden Increased Bleeding Call your doctor if you observe: Fever of 101 or Higher Suture Line Care: Avoid Pulling/Pushing, Avoid Pinching/Bending Home Medications: Medications to take at Discharge Amlodipine Besylate/Benazepril [Amlodipine-Benazepril 5-10 mg] 1 ea PO DAILY 05/10/20 Aspirin [Aspirin, Baby] 81 mg PO DAILY@0800 05/10/20 Icosapent Ethyl [Vascepa] 2 gm PO BID 05/10/20 Levothyroxine [Synthroid] 25 mcg PO DAILY 05/10/20 Multivit-Min/FA/Lycopen/Lutein [Centrum Silver Men Tablet] 1 ea PO DAILY 05/10/20 Nitroglycerin (INPATIENT USE) [Nitrostat] 0.4 mg SUBLINGUAL Q5M PRN 05/10/20 Ticagrelor [Brilinta] 60 mg PO BID 05/10/20 Rosuvastatin Calcium 40 mg PO DAILY 06/16/20 Docusate Sodium [Colace] 100 mg PO BID #20 capsule 06/26/20 Hydrocodone Bitart/Apap 5-325 [[place] 5MG-325MG] 1 tablet PO Q4H PRN PRN 7 Days #14 tab 06/26/20 Following Prescriptions Were Given to Patient: Docusate Sodium [Colace] 100 mg PO BID #20 capsule Transmission Status: Received by [facility]ATEUS [facility] Hydrocodone Bitart/Apap 5-325 [[place] 5MG-325MG] 1 tablet PO Q4H PRN PRN 7 Days #14 tab PRN Reason: Pain Transmission Status: Received by [facility] Primary Care Physician: Shree Pang DO [Primary Care Provider] - Please Follow Up With: Ty Toscano MD When: in 2 weeks, please call to make an appointment. Additional Instructions: resume all your medications. Medical Necessity - Tobacco Use Smoking Status: Never smoker Tobacco Use: Non-smoker Meaningful Use Info Meaningful Use Diagnoses (Choose all that apply): None applicable
[2020-06-27 08:54] VITALS: BP 149/83; PULSE 68; RESP 18; TEMP 36.8; O2SAT 95
[2020-06-27] MEDS: Polyethylene Glycol 3350 17 GM PACKET PO (08:55)
[2020-06-27] MEDS: Docusate Sodium 100 MG Capsule PO (08:55)
[2020-06-27] MEDS: Pantoprazole Sodium 20 MG Tablet PO (08:55)
[2020-06-27] MEDS: Lisinopril 10 MG Tablet PO (08:55)
[2020-06-27] MEDS: amLODIPine 5 MG Tablet PO (08:55)
== END 2020-06-27 11:29 | disposition home or self-care (01) | DRG 657 ==
LOC: SDC 08:48 → MS3 08:48 → PCU 14:01
PROVIDERS: Anesthesiology; Internal Medicine; Admitting Provider Urology; PCP Student in an Organized Health Care Education/Training Program; Referring Provider Urology; Visit Provider Urology
PROC: 8E0W4CZ Robotic Assisted Procedure of Trunk Region, Percutaneous Endoscopic Approach (ICD-10-PCS; CPT 50543; principal; 2020-06-23 07:10)
DX: C64.1 Malignant neoplasm of right kidney, except renal pelvis (principal); I50.32 Chronic diastolic (congestive) heart failure; I48.91 Unspecified atrial fibrillation; I25.10 Atherosclerotic heart disease of native coronary artery without angina pectoris; I11.0 Hypertensive heart disease with heart failure; I35.0 Nonrheumatic aortic (valve) stenosis; G47.33 Obstructive sleep apnea (adult) (pediatric); E78.00 Pure hypercholesterolemia, unspecified; E03.9 Hypothyroidism, unspecified; Z20.822 Contact with and (suspected) exposure to COVID-19; Z95.5 Presence of coronary angioplasty implant and graft; Z79.82 Long term (current) use of aspirin; Z79.890 Hormone replacement therapy; Z79.02 Long term (current) use of antithrombotics/antiplatelets; Z79.899 Other long term (current) drug therapy
CPT/HCPCS: 36415; 80048; 80076; 82040; 83735; 84443; 84484; 85027; 85610; 85730; 87426; 88307; 88311; 93005; 99251; C9803; J7120; A4216; G0463; J0153; J2405

== ENCOUNTER 2021-05-12 10:39 | Outpatient (CLI) | payer MEDICARE, OTHER, SELFPAY ==
--- NOTE | 2021-05-12 10:56 | RAD_ITS ---
STUDY: X-RAY CHEST REASON FOR EXAM: Male, 76 years old. Chest pain, history of renal cell CA TECHNIQUE: PA and lateral views of the chest. COMPARISON: None. FINDINGS: The lungs are clear and expanded. There is no demonstrated pleural abnormality. Normal size heart. Normal mediastinum and guero. Normal visualized pulmonary arteries. Normal visualized aortic arch and descending thoracic aorta. There are diffuse degenerative changes of the visualized thoracic spine. Normal visualized ribs, clavicles, and shoulders. There is no demonstrated abnormality of the visualized soft tissue structures of the upper abdomen. RAD/Chest PA and Lateral IMPRESSION: No acute pulmonary process Electronically Signed: Prabhakar Ross MD at 10:13 EST ,
[2021-05-12 12:32] LABS: Anion Gap 5 (5-15); BUN 20 mg/dL (7-18); BUN/Creat Ratio 15.2 RATIO (10-20); Calcium,Total 9.5 mg/dL (8.5-10.1); Chloride 109 mmol/L (98-107); Creatinine, Serum 1.32 mg/dL (0.70-1.30); EST Glomerular Filtration Rate 56 mL/min (>60); Est Glom Filt Rate - Afr Amer 68 mL/min (>60); Glucose 107 mg/dL (74-106); PSA,Total- Diagnostic 4.35 ng/mL (0.0-4.0); Potassium 4.1 mmol/L (3.5-5.1); Sodium Level 139 mmol/L (136-145)
== END 2021-05-12 23:59 | disposition home or self-care (01) ==
LOC: LAB 10:41
PROVIDERS: PCP Student in an Organized Health Care Education/Training Program; Referring Provider Urology; Visit Provider Urology
DX: C64.1 Malignant neoplasm of right kidney, except renal pelvis (principal); R97.20 Elevated prostate specific antigen [PSA]
CPT/HCPCS: 36415; 71046; 80048; 84153

== ENCOUNTER → 2021-11-10 | Outpatient (CLI) | payer MEDICARE, OTHER, SELFPAY ==
--- NOTE | 2021-11-10 10:22 | RAD_ITS ---
STUDY: X-RAY CHEST REASON FOR EXAM: Male, 76 years old. PERSONAL HX OF OTHER MALIGNANT NEOPLASM OF KIDNEY TECHNIQUE: PA and lateral views of the chest. COMPARISON: 05.12.21 chest x-ray FINDINGS: The lungs are clear and expanded. There is no demonstrated pleural abnormality. Normal size heart. Normal mediastinum and guero. Normal visualized pulmonary arteries. There is atherosclerotic calcification of the aortic arch with tortuosity. There are diffuse degenerative changes of the visualized thoracic spine. There is a left-sided shoulder arthroplasty. There is degenerative change of the partially visualized right shoulder joint. There is no demonstrated abnormality of the visualized soft tissue structures of the upper abdomen. RAD/Chest PA and Lateral IMPRESSION: Stable chest. No demonstrated acute cardiopulmonary process. Electronically Signed: Luba Nelson MD at 4:22 EDT ,
[2021-11-10 11:48] LABS: PSA,Total- Diagnostic 4.37 ng/mL (0.0-4.0)
== END | disposition home or self-care (01) ==
LOC: LAB 10:15
PROVIDERS: PCP Student in an Organized Health Care Education/Training Program; Referring Provider Urology; Visit Provider Urology
DX: R97.20 Elevated prostate specific antigen [PSA] (principal); Z85.528 Personal history of other malignant neoplasm of kidney
CPT/HCPCS: 36415; 71046; 84153

== ENCOUNTER → 2022-05-01 | Outpatient (CLI) | payer MEDICARE, OTHER, SELFPAY ==
--- NOTE | 2022-05-01 10:04 | RAD_ITS ---
INDICATION: MALIGNANT NEPLASM OF KIDNEY EXAMINATION/TECHNIQUE: X-RAY - XR Chest 2 Views COMPARISON: November 10, 2021. FINDINGS: LINES/DEVICES: None. LUNGS: No consolidation, edema or effusion. No pneumothorax. MEDIASTINUM AND CARDIOVASCULAR STRUCTURES: Cardiac silhouette not enlarged. Central airways and mediastinal contour are unremarkable. BONES AND SOFT TISSUES: Degenerative vertebral changes. Left shoulder prosthesis. RAD/Chest PA and Lateral IMPRESSION: No radiographic evidence of acute cardiopulmonary disease. Electronically Signed: Froilan Moss DO at 23:54 EST Reading Location ID and State: [facility] / [place] Tel [phone], Service support ,
[2022-05-01 10:25] LABS: Hematocrit 42.1 % (40-54); Hemoglobin 14.3 g/dL (13.0-16.5); Mean Corpuscular Hgb 32.8 pg (27.0-32.0); Mean Corpuscular Volume 96.6 fL (80-94); Mean Platelet Vol. 9.7 fl (6.2-12.0); Platelet Count 173 K/mm3 (150-450); RBC Distribution Width CV 12.6 % (11.6-14.6); RBC Distribution Width SD 44.8 fl (35.1-43.9); Red Blood Count 4.36 M/mm3 (4.6-6.2)
[2022-05-01 11:10] LABS: ALB/GLOB Ratio 0.9 RATIO (0.9-2.4); AST(SGOT) 17 U/L (15-37); Alanine Aminotransfer ALT/SGPT 32 U/L (16-61); Albumin, Serum 3.5 g/dL (3.2-5.0); Alkaline Phosphatase 87 U/L (45-117); Anion Gap 5 (5-15); BUN 22 mg/dL (7-18); BUN/Creat Ratio 16.9 RATIO (10-20); Calcium,Total 9.3 mg/dL (8.5-10.1); Chloride 107 mmol/L (98-107); EST Glomerular Filtration Rate 57 mL/min (>60); Est Glom Filt Rate - Afr Amer 69 mL/min (>60); Globulin 3.7 g/dL (2.2-4.2); Glucose 106 mg/dL (74-106); PSA,Total- Diagnostic 4.92 ng/mL (0.0-4.0); Potassium 4.4 mmol/L (3.5-5.1); Protein, Total 7.2 g/dL (6.4-8.2); Sodium Level 139 mmol/L (136-145)
== END | disposition home or self-care (01) ==
PROVIDERS: PCP Student in an Organized Health Care Education/Training Program; Referring Provider Urology; Visit Provider Urology
DX: C64.1 Malignant neoplasm of right kidney, except renal pelvis (principal); R97.20 Elevated prostate specific antigen [PSA]
CPT/HCPCS: 36415; 71046; 80053; 84153; 85027

== ENCOUNTER → 2022-10-30 | Outpatient (CLI) | payer MEDICARE, OTHER, SELFPAY ==
--- NOTE | 2022-10-30 10:25 | RAD_ITS ---
STUDY: X-RAY CHEST REASON FOR EXAM: Male, 77 years old. Right kidney neoplasm. Follow-up. TECHNIQUE: Frontal and lateral views of the chest. COMPARISON: May 01, 2022. FINDINGS: Mild hyperinflation unchanged. There is no demonstrated pleural abnormality. Mild cardiomegaly unchanged. Normal mediastinum and guero. Normal visualized pulmonary arteries. Stable aortic tortuosity. Thoracic osteopenia with diffuse spondylosis, unchanged. Left shoulder hemiarthroplasty with arthrosis of the right glenohumeral joint. No abnormality of the visualized soft tissue structures of the upper abdomen. RAD/Chest PA and Lateral IMPRESSION: Stable chest with no acute or active cardiopulmonary disease. Electronically Signed: Waqas Tovar MD at 9:19 EDT ,
[2022-10-30 10:45] LABS: Hematocrit 43.3 % (40-54); Hemoglobin 14.3 g/dL (13.0-16.5); Mean Corpuscular Hgb 32.8 pg (27.0-32.0); Mean Corpuscular Volume 99.3 fL (80-94); Mean Platelet Vol. 9.6 fl (6.2-12.0); Platelet Count 165 K/mm3 (150-450); RBC Distribution Width CV 12.6 % (11.6-14.6); RBC Distribution Width SD 45.8 fl (35.1-43.9); Red Blood Count 4.36 M/mm3 (4.6-6.2); White Blood Count 6.7 K/mm3 (4.4-11.0)
[2022-10-30 11:19] LABS: AST(SGOT) 25 U/L (15-37); Alanine Aminotransfer ALT/SGPT 50 U/L (16-61); Albumin, Serum 3.7 g/dL (3.2-5.0); Alkaline Phosphatase 93 U/L (45-117); Anion Gap 6 (5-15); BUN 17 mg/dL (7-18); BUN/Creat Ratio 12.3 RATIO (10-20); Calcium,Total 9.4 mg/dL (8.5-10.1); Chloride 108 mmol/L (98-107); Creatinine, Serum 1.38 mg/dL (0.70-1.30); EST Glomerular Filtration Rate 53 mL/min (>60); Est Glom Filt Rate - Afr Amer 64 mL/min (>60); Globulin 3.8 g/dL (2.2-4.2); Glucose 104 mg/dL (74-106); Potassium 4.4 mmol/L (3.5-5.1); Protein, Total 7.5 g/dL (6.4-8.2); Sodium Level 138 mmol/L (136-145)
== END | disposition home or self-care (01) ==
PROVIDERS: PCP Student in an Organized Health Care Education/Training Program; Referring Provider Urology; Visit Provider Urology
DX: C64.1 Malignant neoplasm of right kidney, except renal pelvis (principal)
CPT/HCPCS: 36415; 71046; 80053; 85027

== ENCOUNTER → 2022-11-08 | Outpatient (CLI) | payer MEDICARE, OTHER, SELFPAY ==
--- NOTE | 2022-11-08 07:29 | CT_ITS ---
STUDY: CT ABDOMEN AND PELVIS WITHOUT AND WITH CONTRAST - REASON FOR EXAM: Male, 77 years old. MALIGNANT NEOPLASM OF RIGHT KIDNEY RADIATION DOSAGE (If Supplied By Facility): CTDIvol = ( 26.41 ) mGy, DLP = ( 3985.62 ) mGycm TECHNIQUE: IV 100mL Isovue-300 was administered. Transaxial images were obtained from the dome of the diaphragm to the symphysis pubis. Multiplanar coronal and sagittal images were reformatted. Individualized Dose Optimization Techniques Were Used For This CT. COMPARISON: FINDINGS: The visualized lung bases are unremarkable. The visualized portions of the heart are within normal limits. Normal liver. Cholelithiasis. No significant dilatation of the extrahepatic biliary system. Normal spleen. Normal pancreas. Normal bilateral adrenal glands. Normal visualized stomach. Normal small intestine. Normal colon. The appendix is not visualized.. Calcified abdominal aorta. Subcentimeter retroperitoneal nodes. Nonvisualization of the right kidney. Punctate stone in the left kidney. Normal urinary bladder. Bilateral hip prosthesis causing artifact limiting the lower pelvic images. Normal abdominal wall. Degenerative vertebral changes. CT/CT Abd/Pelvis W/WO Contrast IMPRESSION: Status post right nephrectomy. Cholelithiasis. Subcentimeter retroperitoneal nodes. Possible punctate nonobstructing left renal stone. Electronically Signed: Froilan Moss DO at 11:36 EDT ,
== END | disposition home or self-care (01) ==
LOC: CT 07:21
PROVIDERS: PCP Student in an Organized Health Care Education/Training Program; Referring Provider Urology; Visit Provider Urology
DX: C64.1 Malignant neoplasm of right kidney, except renal pelvis (principal)
CPT/HCPCS: 74178; Q9967

== ENCOUNTER 2023-02-06 13:30 | Outpatient (RCR) | payer MEDICARE, OTHER, SELFPAY ==
--- NOTE | 2022-12-25 07:53 | HP.PTEVAL ---
Patient's Visit Information Visit Information Visit Information: VITO ANAND is a 77 year old M referred to Physical Therapy by Dr. Shree Tucker DO with a diagnosis of R knee OA, IDD. Date of Evaluation: 12/25/22 Physical Therapist: Haroon Arreola, DPT, OCS, CSCS Visit Plan Frequency: 2x /Week Duration: 4-6 Weeks Plan: 2x/week x 3 in water and then consider land. Pt is to hold on TM during his workout and replace that time with NUstep, bike, UBE time. Also to lie flat supine as a stretching ex 3 min 1-2x/day. start in pool with psoas and quad stretchin(h/o B PADDY), core NS and LE strength and LB ROM and progress to I pool or home. After 3 weeks in pool we can recheck for continued pool or progress to HEP/machine based ex. Subjective Subjective: R knee to R hip have been hurting and Garrett said it could be coming from his back. It is pain and R knee is difficult to bend. It feels swollen but does not appear swollen. That has been off and on for a while. Last month has been very constant and for no apparent reason. He was given meds for nerves but has not gotten it yet. 3x/week workout at and does Nustep, Bike, TM, Arm bike, some core exercises on table on back with pelvic tilt, bridging, ,seatedmarch, fis. feels about the same after done., not employed. sleep is OK for the most part. Basic ADLs are getting done, walking is limited at grocery store, Has to sit down and rest. Climbing ladders is painful especially getting knee to bend. Steps at home can be an issue. Has some LBP also to go along with the leg. Pain R hip and knee: Pain Intensity (Out of 10): 2 Pain Intensity Range: 3 and 8 Comment: 3 at rest, worse with activity , WB Objective Objective: Walks into PT I with R antalgia and hunched at waist into flexion 10 degrees. R knee does not straighten fully at heel strike. Walks I without AD. Trasfers I with UE. Steps are reciprocal up and down but pain on R knee ascending and descending. AROM R knee -10 to 88, PROM to 90 and painful. AROM L knee -2 to 110. Patella stiff B with hardly any movement R. LB AROM is limited to nil extension, max limitations flexion, max limitation SB. hip AROM -5 R form full extension and to neutral ext L, pain in hips is limiting factor. Rotations are limited B hips but funcitonal, flexion 95 R and 105 L. flexion and IR are painful B at end range. reflexes 0/3 patella and achilles B Sensation LE WNL to gross light touch. strength hips 3 hip ext and abd and 3+ flexion. knee flexion and extension 4 B without pain. ankles 4+ B. + bounce home R and + scour r knee. Balance/Special Test Scores Lower Extremity Functional Score: 23 Goals Goal 1:: I appropr LE and core strength to limit future problem, core and LE strength and quad/psoas stretch Goal Time Frame: 4-6 Weeks Goal 2:: R knee AROM -3 to 105 to help with mobility pain Goal Time Frame: 4-6 Weeks Goal 3:: pain level knee and hip 2/10 at worst and 75% better Goal Time Frame: 4-6 Weeks Goal 4:: LEFS 43 Goal Time Frame: 4-6 Weeks Rehabilitation Potential Physical Therapy Diagnosis: Degeneraative changes knee and back causing pain and limitations in function. Rehabilitation Potential: Fair Anticipated Interventions Patient/Client Instruction: Educate patient on: Condition and Plan of Care For the Purpose of:: To decrease pain, To increase ROM, To improve nutrient delivery to tissue, To improve muscle performance and motor function, To increase tolerance to activity/condition/position and To improve ability of physical actions for home/community/work/leisure Therapeutic Exercise to Include: Strength training, Postural training, Flexibilty training, In an aquatic setting, Passive ROM and Active ROM For the Purpose of:: To decrease pain, To decrease swelling/inflammation, To improve nutrient delivery to tissue, To improve muscle performance and motor function and To increase tolerance to activity/condition/position Manual Therapy Techniques to Include: Mobilization, Passive ROM and Soft tissue mobilization For the Purpose of:: To decrease pain and To increase ROM Text: Thank you for the opportunity to evaluate your patient. For Medicare and Medicare HMO plans, please review the plan of care and approve it. It will need to be FAXED BACK to us at [phone] for Medicare purposes. For Medicare only, by signing this I certify the plan of care. Please let me know if there are questions or concerns regarding this plan of care. Physician Signature: Date:
--- NOTE | 2023-02-06 13:56 | HP.PTDCSUM ---
Discharge Summary D/C summary: It has been my pleasure to treat VITO ANAND referred by Dr. Shree Tucker DO, with the diagnosis of R knee OA, IDD for a total of 14 visit(s). Discharge Date: 02/06/23 Please see the following information for a summary of their discharge status. Subjective Subjective: Pool really helps. A lot less pain in the back and the R knee. Hip feels alot better. Standing up straighter. Pain in the last week knee 2/10, LB 4/10. Pain overall 75% better. Activities: Not avoiding any activities, Bending too much may make him worse, steps sometimes can be bothersome but better than previously. Sleep is OK. Sees Garrett 02/27. Wishes to continue with pool 3x week I and his current gym workout vs learning more. Pain R hip and knee: Pain Intensity (Out of 10): 0 BACK: Pain Intensity (Out of 10): 4 Overall Improvement % Improvement: 75 Objective Objective/Function: Walking slightly hunched over but I. LB AROM ext to neutral only, mox limited B SB, flexion is stiff, only extension painful today. Goals Goal 1:: I appropr LE and core strength to limit future problem, core and LE strength and quad/psoas stretch Goal Progress: Goal Met Goal 2:: R knee AROM -3 to 105 to help with mobility pain Goal 3:: pain level knee and hip 2/10 at worst and 75% better Goal Progress: Goal Met Goal 4:: LEFS 43 Goal Progress: Progressing Plan Plan: d/c to I pool program. D/C Information Discharge Comments: Will continue I in the pool. d/c sentence: If there are questions or concerns regarding this patient's physical therapy, please feel free to call me at [phone]. Thank you for the referral of this patient. Sincerely, Haroon Arreola, DPT, OCS, CSCS Balance/Gait/Functional tests Balance/Special Test Scores Lower Extremity Functional Score: 39 Improvement % Improvement: 75
== END 2023-02-06 19:00 | disposition home or self-care (01) ==
LOC: PT 13:30
PROVIDERS: PCP Student in an Organized Health Care Education/Training Program; Visit Provider Orthopaedic Surgery
DX: M17.11 Unilateral primary osteoarthritis, right knee (principal); M51.36 Other intervertebral disc degeneration, lumbar region
CPT/HCPCS: 97113; 97162; 97164

== ENCOUNTER → 2023-05-03 | Outpatient (CLI) | payer MEDICARE, OTHER, SELFPAY ==
--- NOTE | 2023-05-03 10:00 | RAD_ITS ---
EXAM: XR CHEST, 2 VIEWS CLINICAL INDICATION: KIDNEY CA TECHNIQUE: Frontal and lateral views of the chest. COMPARISON: XR Chest dated 10/30/2022 FINDINGS: LUNGS AND PLEURAL SPACES: Hyperlucency within both upper lobes of lungs again seen suggesting underlying emphysema. HEART: Normal heart size. MEDIASTINUM: No mediastinal or hilar mass. BONES/JOINTS: Left shoulder prosthesis again seen. Degenerative changes of the right glenohumeral joint. RAD/Chest PA and Lateral IMPRESSION: No acute cardiopulmonary abnormality. COPD. No interval change Electronically Signed: Milton Arias MD at 8:51 EST ,
[2023-05-03 10:21] LABS: Hematocrit 44.4 % (40-54); Hemoglobin 14.3 g/dL (13.0-16.5); Mean Corp Hgb Conc 32.2 g/dL (32-36); Mean Corpuscular Hgb 32.3 pg (27.0-32.0); Mean Corpuscular Volume 100.2 fL (80-94); Mean Platelet Vol. 9.3 fl (6.2-12.0); Platelet Count 173 K/mm3 (150-450); RBC Distribution Width CV 12.9 % (11.6-14.6); RBC Distribution Width SD 48.2 fl (35.1-43.9); Red Blood Count 4.43 M/mm3 (4.6-6.2); White Blood Count 7.4 K/mm3 (4.4-11.0)
--- OUTSIDE RECORDS SUMMARY | 2023-05-03 10:28 | XMS RPT_ITS | CCD ---
Author Name Unknown Address [address] [place] [address] Organization [facility] Care Team Providers Care Furnace Mason Name Role Phone YANETH REYES DO Primary Care Physician [id number] Poly HICKS MD, Michael Primary Care Provider [phone] YANETH REYES IV Primary Care Unavailable GREGORY BRIGGS Referring Unavailable GREGORY BRIGGS Attending Unavailable YANETH REYES DO Attending Unavailable YANETH REYES DO Primary Care Unavailable YANETH REYES DO Attending Unavailable YANETH REYES DO Primary Care Unavailable DR DEEDEE CAMPBELL MD Attending YANETH Hawley DO Primary Care Unavailable YANETH REYES DO Attending Unavailable YANETH REYES DO Primary Care Unavailable SHANNAN MARINA, DR MARK Attending YANETH Hawley DO Primary Care Unavailable YANETH REYES DO Attending YANETH Da Silva DO Primary Care Unavailable Medications Current Medications Medication Drug Class(es) Dates Sig (Normalized) Sig (Original) acetaminophen 500 mg oral tablet (11 sources) Start: 11-18-2019 acetaminophen 500 mg oral tablet Dose : 500 mg = 1 tab(s), Oral, q4h, PRN as needed for pain, # 100 tab(s), 0 Refill(s) Start Date: 11/18/19 Status: Ordered amLODIPine 5 mg / benazepril hydrochloride 10 mg oral capsule (12 sources) Dihydropyridine Calcium Channel Iraida, Angiotensin Converting Enzyme Inhibitor Start: 12-13-2020 End: 10-01-2023 take 1 capsule by mouth once daily Lotrel 5 mg-10 mg oral capsule Dose = 1 cap(s), Oral, Daily, # 90 cap(s), 1 Refill(s), Pharmacy: [facility] [id number], 177.8, cm, 04/04/23 9:40:00 EST, Height, kg, 04/04/23 9:40:00 EST, Dosing Weight Start Date: 04/04/23 Stop Date: 10/01/23 Status: Ordered Completed/Discontinued Medications Medication Drug Class(es) Dates Sig (Normalized) Sig (Original) 1 ml denosumab 60 mg/ml prefilled syringe (1 source) RANK Ligand Inhibitor Start: 04-04-2023 Prolia 60 mg/mL subcutaneous solution Dose : 60 mg = 1 mL, Subcutaneous, q6mo, dx M81.0, # 1 mL, 1 Refill(s) Start Date: 04/04/23 Status: Ordered fluticasone propionate 0.05 mg/actuat metered dose nasal spray (1 source) Corticosteroid Start: 10-19-2018 fluticasone (FLONASE) 50 mcg/actuation nasal spray 1 Dorr once daily. 0 10/19/2018 Active Problems Problem Classification Problem Date Documented Da te Episodic/Chronic Abdominal pain (4 sources) Abdominal pain 05-10-2020 Episodic Calculus of urinary tract (11 sources) Kidney stone 05-11-2020 Episodic Cancer of kidney and renal pelvis (11 sources) Renal cell carcinoma 05-11-2020 Chronic Cardiac dysrhythmias (11 sources) Paroxysmal atrial fibrillation 12-15-2020 Chronic Cardiac dysrhythmias (11 sources) Bradycardia 11-07-2019 Episodic Results Test Name Value Interpretation Reference Range Facil ity Vital Signs Date Time Vital Sign Value Performing Clinician Faci lity 04-25-2023 12:50-0500 Diastolic Blood Pressure Non-Invasive 69 mm[Hg] YANETH REYES DO [facility] 04-25-2023 12:50-0500 Heart rate 67 /min YANETH REYES DO [facility] 04-25-2023 12:50-0500 Systolic Blood Pressure Non-Invasive 109 mm[Hg] YANETH REYES DO [facility] 04-25-2023 12:27-0500 Body temperature 97.7 [degF] YANETH REYES DO [facility] 04-25-2023 12:27-0500 Diastolic Blood Pressure Non-Invasive 67 mm[Hg] YANETH REYES DO [facility] 04-25-2023 12:27-0500 Heart rate 66 /min YANETH REYES DO [facility] 04-25-2023 12:27-0500 Reason For Taking VItal Signs YANETH REYES DO [facility] 04-25-2023 12:27-0500 Systolic Blood Pressure Non-Invasive 120 mm[Hg] YANETH REYES DO [facility] 08-19-2021 12:18-0400 Diastolic Blood Pressure NBP 83 1 GUS UGALDE MD [facility] 08-19-2021 12:18-0400 Heart rate 55 /min GUS UGALDE MD [facility] 08-19-2021 12:18-0400 Respiratory rate 19 /min GUS UGALDE MD [facility] 08-19-2021 12:18-0400 Systolic Blood Pressure NBP 136 1 GUS UGALDE MD [facility] 08-19-2021 12:14-0400 Diastolic Blood Pressure NBP 79 1 GUS UGALDE MD [facility] 08-19-2021 12:14-0400 Heart rate 55 /min GUS UGALDE MD [facility] 08-19-2021 12:14-0400 Respiratory rate 18 /min GUS UGALDE MD [facility] 08-19-2021 12:14-0400 Systolic Blood Pressure NBP 135 1 GUS UGALDE MD [facility] 08-19-2021 12:10-0400 Diastolic Blood Pressure NBP 76 1 GUS UGALDE MD [facility] 08-19-2021 12:10-0400 Heart rate 58 /min GUS UGALDE MD [facility] 08-19-2021 12:10-0400 Respiratory rate 13 /min GUS GUALDE MD [facility] 08-19-2021 12:10-0400 Systolic Blood Pressure NBP 126 1 GUS UGALDE MD [facility] 08-19-2021 10:18-0400 Body height 180.3 cm GUS UGALDE MD [facility] 08-19-2021 10:18-0400 Body temperature 98.24 [degF] GUS UGALDE MD [facility] 08-19-2021 10:18-0400 Body weight 113 kg GUS UGALDE MD [facility] 08-19-2021 10:18-0400 diastolic 80 mm[Hg] GUS UGALDE MD [facility] 08-19-2021 10:18-0400 Heart rate 64 /min GUS UGALDE MD [facility] 08-19-2021 10:18-0400 systolic 140 mm[Hg] GUS UGALDE MD [facility] Encounters Encounter Date Encounter Type Care Provider Facility Start: 04-25-2023 End: 04-25-2023 SAME DAY STAY YANETH MOREKO DO [facility] Start: 03-30-2023 End: 03-31-2023 ambulatory YANETH HALKO DO Facility:[facility] Start: 03-05-2023 End: 03-06-2023 ambulatory YANETH HALKO DO Facility:[facility] Start: 03-05-2023 End: 03-05-2023 Patient encounter procedure YANETH HALKO DO [facility] Start: 02-28-2023 End: 02-28-2023 ambulatory YANETH REYES IV Facility:[facility] Start: 02-07-2023 End: 02-08-2023 ambulatory YANETH HALKO DO Facility:[facility] Start: 01-26-2023 End: 01-27-[address] DEEDEE CAMPBELL MD Facility:[facility] Start: 01-26-2023 End: 01-26-[address] DEEDEE CAMPBELL MD [facility] Start: 07-24-2022 End: 07-25-2022 ambulatory YANETH REYES DO Facility:[facility] Start: 06-28-2022 End: 06-29-[address] DEEDEE CAMPBELL MD Facility:[facility] Start: 06-28-2022 End: 06-28-[address] DEEDEE CAMPBELL MD [facility] Start: 01-27-2022 End: 01-27-2022 Patient encounter procedure YANETH REYES DO [facility] Start: 01-26-2022 End: 01-26-2022 Patient encounter procedure Gregory Briggs MD Work Phone: Ophthalmology Procedures Date Procedure Procedure Detail Performing Clinician Start: 01-26-2022 Computerized ophthal steven imaging optic nerve Gregory Briggs MD Work Phone: Start: 01-25-[address] DEEDEE CAMPBELL MD Plan of Treatment Date Care Activity Detail Author Start: 09-22-2021 COVID-19 VACCINE (5 - Booster for Pfizer series) COVID-19 VACCINE (5 - Booster for Pfizer series) [facility] Start: 03-19-2021 ADVANCE DIRECTIVE DISCUSSION ADVANCE DIRECTIVE DISCUSSION [facility] Start: 03-19-2021 DEPRESSION ASSESSMENT DEPRESSION ASS ESSMENT [facility] Start: 2011 PNEUMOCOCCAL: 65+ (1 - PCV) PNEUMOCOCCAL: 65+ (1 - PCV) [facility] Start: 1996 SHINGRIX VACCINE (1 of 2) SHINGRIX V ACCINE (1 of 2) [facility] Start: 1991 COLOGUARD (FIT-DNA) COLOGUARD (FIT-D NA) [facility] Start: 1991 Colonoscopy COLONOSCOPY [facility] Start: 1991 COLORECTAL CANCER SCREENING COLORECTAL CANCER SCREENING [facility] Start: [address] COLONOGRAPHY [facility] Start: 1991 DIABETES SCREEN DIABETES SCREEN [facility] Start: 1991 FECAL OCCULT BLOOD FECAL OCCULT BLOO D [facility] Start: 1991 SIGMOIDOSCOPY SIGMOIDOSCOPY [facility] Start: 1981 LIPID SCREEN LIPID SCREEN [facility] Start: 1965 Urine microalbumin profile DTAP,TDAP ,TD (1 - Tdap) [facility] Start: 1964 HEPATITIS [facility] Immunizations Immunization Date Immunization Notes Care Provider Fa sandoval 02-06-2023 influenza, high dose seasonal, preservative-free; Translations: [Fluad Quadrivalent PF ] YANETH REYES DO [facility] 02-08-2022 COVID-19, mRNA, LNP- S, bivalent booster, PF, 30 mcg/0.3 mL dose; Translations: [Pfizer-BioNTech COVID-19 (12y+) Bivalent Booster Vaccine PF] DR DEEDEE CAMPBELL MD [facility] 02-08-2022 SARSCoV2 mRNA(vyteekfigkz84u+)biv al vac; Translations: [Pfizer-BioNTech COVID-19 (12y+) Bivalent Booster Vaccine PF] YANETH REYES DO [facility] 01-09-2022 influenza, high dose seasonal, preservative-free YANETH REYES DO [facility] 07-28-2021 COVID-19, mRNA, LNP- S, PF, 30 mcg/0.3 mL dose; Translations: [Pfizer-BioNTech COVID-19 Vaccine (Do Not Dilute)] GUS UGALDE MD [facility] 03-03-2021 COVID-19, mRNA, LNP- S, PF, 30 mcg/0.3 mL dose; Translations: [Pfizer-BioNTech COVID-19 Vaccine] DR DEEDEE CAMPBELL MD [facility] 02-14-2021 influenza, high dose seasonal, preservative-free; Translations: [Fluad Quadrivalent PF ] YANETH REYES DO [facility] 10-20-2020 tetanus toxoid, redu louis diphtheria toxoid, and acellular pertussis vaccine, adsorbed; Translations: [Boostrix (Tdap)] ZABRINA CROFT DO [facility] 07-09-2020 SARS-CoV-2 mRNA (tozinameran) vaccine YANETH REYES DO [facility] 06-19-2020 SARS-CoV-2 mRNA (tozinameran) vaccine YANETH REYES DO [facility] 12-16-2018 pneumococcal polysaccharide vaccine, 23 valent; Translations: [Pneumovax 23] ZABRINA CROFT DO [facility] 12-22-2016 zoster vaccine, live ZABRINA CROFT DO [facility] 12-17-2016 zoster vaccine recombinant ZABRINA CROFT DO [facility] 12-16-2016 zoster vaccine recombinant ZABRNIA CROFT DO [facility] 12-24-2014 pneumococcal conjuga te vaccine, 13 valent ZABRINA CROFT DO [facility] 12-08-2014 pneumococcal conjuga te vaccine, 13 valent ZABRINA CROFT DO [facility] 11-11-2012 pneumococcal polysaccharide vaccine, 23 valent ZABRINA CROFT DO [facility] 11-11-2012 tetanus and diphther ia toxoids, adsorbed, preservative free, for adult use (5 Lf of tetanus toxoid and 2 Lf of diphtheria toxoid) ZABRINA CROFT DO [facility] 06-02-2006 tetanus and diphther ia toxoids, adsorbed, preservative free, for adult use (5 Lf of tetanus toxoid and 2 Lf of diphtheria toxoid) ZABRINA CORFT DO [facility] 08-22-1995 hepatitis B pediatri c vaccine ZABRINA CROFT DO [facility] 03-28-1995 hepatitis B pediatri c vaccine ZABRINA CROFT DO [facility] 02-26-1995 hepatitis B pediatri c vaccine ZABRINA CROFT DO [facility] Payers Date Payer Category Payer Medicare [id number] 2019 Unknown MMO MMO MEDICARE SUPPLEMENT [id number] 2019-Present [phone] [address] [place] [address] Indemnity [id number] 2011 Medicare MEDICARE MEDICAR E A AND B [id number] 2011-Present [phone] [address] [address] [place] [address] Medicare [id number] 2011 Medicare [id number] 1945 Unknown [id number] 1945 Unknown [id number] 1945 Unknown [id number] 1945 Unknown [id number] 1945 Unknown [id number] 1945 Unknown [id number] Social History Date Type Detail Facility Start: 01-11-2018 End: 08-23-2018 Never smoked tobacco (finding) [facility] Sex Assigned At Male [facility] Start: 01-11-2018 Tobacco use and exposure Smokeless tobacco non-user [facility] Start: 01-26-2022 Alcohol intake Lifetime non-d marquise (finding) [facility] Start: 01-28-2020 History SDOH Alcohol Frequency 1 [facility] Start: 1945 Sex Assigned At Not on file [facility] Functional Status Date Assessment Result Facility 08-19-2021 Functional Status Patient Identi fied Identification band, Verbal [facility] 08-19-2021 [facility] Mental Status Date Assessment Result Facility 08-19-2021 Mental Status Orientation Oriented x 4 [facility] Clinical Notes 11-30-2014 to 04-25-2023 Gregory Briggs MD - 01/26/2022 10:52 AM EST Note Date & Type Note Facility 04-25-2023 Nurse Progress note Jaime stayed 15 minutes post Prolia injection. no symptoms or side effects. VS stable Digitally Signed by PEE Anand on 04/25/2023 12:53 PM [facility] 03-05-2023 Note ORIGINAL EXAMINATION: BONE DENSITOMETRY 03/05/2023 10:04 am TECHNIQUE: A bone density dual x-ray absorptiometry (DEXA) scan was performed of the lumbar spine and left forearm on a HoloPhok[employer] system. COMPARISON: 02/14/2021. HISTORY: ORDERING SYSTEM PROVIDED HISTORY: Reason for Exam: Osteoporosis Screening FINDINGS: Lumbar spine: The bone mineral density in the lumbar spine, L1 through L4 is measured at 1.267 g/cm2 corresponding to a T-score of 1.6. This is within the normal range by WHO criteria. Change from prior: 3.2% increased. LEFT FOREARM: The bone mineral density of the left 1/3 radius is measured at 0.706 g/cm2 corresponding to a T-score of -2.1. This is within the osteopenic range by WHO criteria. The bone mineral density of the total left forearm is measured at 0.532 g/cm2 corresponding to a T-score of -2.7. This is within the osteoporotic range by WHO criteria. Change from prior: 5.2% decrease, statistically significant. IMPRESSION: Osteoporosis by WHO criteria as evidenced by a T-score of -2.7 within the left total forearm. Interpreted by: Keiko Ha Preliminary Report By: Keiko Ha Electronically signed By Keiko Ha Dictated Date: 03/05/2023 10:29:53 AM Prelim Date: 03/05/2023 10:37:48 AM Sign Date: 03/05/2023 10:37:48 AM Ordering Provider: YANETH REYES [facility] 02-28-2023 Note HNO ID: [id number] Author: Gregory Briggs MD Service: ? Author Type: Physician Type: Progress Notes Filed: 02/28/2023 3:39 PM Note Text: Assessment and Plan 1. Combined forms of age-related cataract of both eyes - early visual significance both eyes 2. Vitreous floaters of both eyes - stable 3. Dry eye syndrome of both eyes - mild symptoms both eyes 4. S/P LASIK (laser assisted in situ keratomileusis) of both eyes - stable 5. Recently had kidney removed for cancer - doing well 6. Optic nerve cupping both eyes -good intraocular pressure and nerve fiber layer on OCT Plan: - artificial tears three times a day both eyes - Dr. Lam 1 year for dilated fundus exam both eyes or sooner as needed I have confirmed and edited as necessary the relevant ophthalmic history, ROS, and the neuro exam findings as obtained by others. I have seen and examined Jaime Voss. I have discussed the case and the management of this patient's care with the Resident/Fellow, if applicable. I also have reviewed and agree with the assessment and plan as stated above and agree with all of its relevant components. Gregory Briggs MD [facility] 01-26-2022 History of Presen t illness Narrative Assessment and Plan 1. Combined forms of age-related cataract of both eyes - early visual significance both eyes 2. Vitreous floaters of both eyes - stable 3. Dry eye syndrome of both eyes - mild symptoms both eyes 4. S/P LASIK (laser assisted in situ keratomileusis) of both eyes - stable 5. Recently had kidney removed for cancer - doing well 6. Optic nerve cupping both eyes -good intraocular pressure and nerve fiber layer on OCT Plan: - artificial tears three times a day both eyes - continue follow up with Dr. Ty for glasses - me in 1 year for dilated fundus exam both eyes or sooner as needed I have confirmed and edited as necessary the relevant ophthalmic history, ROS, and the neuro exam findings as obtained by others. I have seen and examined Jaime Voss. I have discussed the case and the management of this patient's care with the Resident/Fellow, if applicable. I also have reviewed and agree with the assessment and plan as stated above and agree with all of its relevant components. Gregory Briggs MD documented in this encounter [facility] 08-19-2021 Hospital Discharg e instructions Patient Education 08/19/2021 11:54:55 Monitored Anesthesia Care, Care After Monitored Anesthesia Care, Care After These instructions provide you with information about caring for yourself after your procedure. Your health care provider may also give you more specific instructions. Your treatment has been planned according to current medical practices, but problems sometimes occur. Call your health care provider if you have any problems or questions after your procedure. What can I expect after the procedure? After your procedure, you may: Feel sleepy for several hours. Feel clumsy and have poor balance for several hours. Feel forgetful about what happened after the procedure. Have poor judgment for several hours. Feel nauseous or vomit. Have a sore throat if you had a breathing tube during the procedure. Follow these instructions at home: For at least 24 hours after the procedure: Have a responsible adult stay with you. It is important to have someone help care for you until you are awake and alert. Rest as needed. Do not: ?Participate in activities in which you could fall or become injured. ?Drive. ?Use heavy machinery. ?Drink alcohol. ?Take sleeping pills or medicines that cause drowsiness. ?Make important decisions or sign legal documents. ?Take care of children on your own. Eating and drinking Follow the diet that is recommended by your health care provider. If you vomit, drink water, juice, or soup when you can drink without vomiting. Make sure you have little or no nausea before eating solid foods. General instructions Take pibs-xow-ywuwrja and prescription medicines only as told by your health care provider. If you have sleep apnea, surgery and certain medicines can increase your risk for breathing problems. Follow instructions from your health care provider about wearing your sleep device: ?Anytime you are sleeping, including during daytime naps. ?While taking prescription pain medicines, sleeping medicines, or medicines that make you drowsy. If you smoke, do not smoke without supervision. Keep all follow-up visits as told by your health care provider. This is important. Contact a health care provider if: You keep feeling nauseous or you keep vomiting. You feel light-headed. You develop a rash. You have a fever. Get help right away if: You have trouble breathing. Summary For several hours after your procedure, you may feel sleepy and have poor judgment. Have a responsible adult stay with you for at least 24 hours or until you are awake and alert. This information is not intended to replace advice given to you by your health care provider. Make sure you discuss any questions you have with your health care provider. Document Released: 06/25/2016 Document Revised: 06/03/2018 Document Reviewed: 06/25/2016 [employer] Patient Education 2020 [employer]. 08/19/2021 11:54:55 Colon Polyps Colon Polyps Polyps are tissue growths inside the body. Polyps can grow in many places, including the large intestine (colon). A polyp may be a round bump or a mushroom-shaped growth. You could have one polyp or several. Most colon polyps are noncancerous (benign). However, some colon polyps can become cancerous over time. Finding and removing the polyps early can help prevent this. What are the causes? The exact cause of colon polyps is not known. What increases the risk? You are more likely to develop this condition if you: Have a family history of colon cancer or colon polyps. Are older than 50 or older than 45 if you are . Have inflammatory bowel disease, such as ulcerative colitis or Crohn's disease. Have certain hereditary conditions, such as: ?Familial adenomatous polyposis. ?Patel syndrome. ?Turcot syndrome. ?Peutz Jeghers syndrome. Are overweight. Smoke cigarettes. Do not get enough exercise. Drink too much alcohol. Eat a diet that is high in fat and red meat and low in fiber. Had childhood cancer that was treated with abdominal radiation. What are the signs or symptoms? Most polyps do not cause symptoms. If you have symptoms, they may include: Blood coming from your rectum when having a bowel movement. Blood in your stool. The stool may look dark red or black. Abdominal pain. A change in bowel habits, such as constipation or diarrhea. How is this diagnosed? This condition is diagnosed with a colonoscopy. This is a procedure in which a lighted, flexible scope is inserted into the anus and then passed into the colon to examine the area. Polyps are sometimes found when a colonoscopy is done as part of routine cancer screening tests. How is this treated? Treatment for this condition involves removing any polyps that are found. Most polyps can be removed during a colonoscopy. Those polyps will then be tested for cancer. Additional treatment may be needed depending on the results of testing. Follow these instructions at home: Lifestyle Maintain a healthy weight, or lose weight if recommended by your health care provider. Exercise every day or as told by your health care provider. Do not use any products that contain nicotine or tobacco, such as cigarettes and e-cigarettes. If you need help quitting, ask your health care provider. If you drink alcohol, limit how much you have: ?0 1 drink a day for women. ? 0 2 drinks a day for men. Be aware of how much alcohol is in your drink. In the [place] one drink equals one 12 oz bottle of beer (355 mL), one 5 oz glass of wine (148 mL), or one 1 oz shot of hard liquor (44 mL). Eating and drinking Eat foods that are high in fiber, such as fruits, vegetables, and whole grains. Eat foods that are high in calcium and vitamin D, such as milk, cheese, yogurt, eggs, liver, fish, and broccoli. Limit foods that are high in fat, such as fried foods and desserts. Limit the amount of red meat and processed meat you eat, such as hot dogs, sausage, santos, and lunch meats. General instructions Keep all follow-up visits as told by your health care provider. This is important. ?This includes having regularly scheduled colonoscopies. ?Talk to your health care provider about when you need a colonoscopy. Contact a health care provider if: You have new or worsening bleeding during a bowel movement. You have new or increased blood in your stool. You have a change in bowel habits. You lose weight for no known reason. Summary Polyps are tissue growths inside the body. Polyps can grow in many places, including the colon. Most colon polyps are noncancerous (benign), but some can become cancerous over time. This condition is diagnosed with a colonoscopy. Treatment for this condition involves removing any polyps that are found. Most polyps can be removed during a colonoscopy. This information is not intended to replace advice given to you by your health care provider. Make sure you discuss any questions you have with your health care provider. Document Released: 11/29/2004 Document Revised: 06/20/2018 Document Reviewed: 06/20/2018 [employer] Patient Education 2020 [employer] 08/19/2021 11:54:55 Colonoscopy, Adult, Care After, [id number] Colonoscopy, Adult, Care After This sheet gives you information about how to care for yourself after your procedure. Your doctor may also give you more specific instructions. If you have problems or questions, call your doctor. What can I expect after the procedure? After the procedure, it is common to have: A small amount of blood in your poop for 24 hours. Some gas. Mild cramping or bloating in your belly. Follow these instructions at home: General instructions For the first 24 hours after the procedure: ?Do not drive or use machinery. ?Do not sign important documents. ?Do not drink alcohol. ?Do your daily activities more slowly than normal. ?Eat foods that are soft and easy to digest. Take yezl-lyo-eaojffe or prescription medicines only as told by your doctor. To help cramping and bloating: Try walking around. Put heat on your belly (abdomen) as told by your doctor. Use a heat source that your doctor recommends, such as a moist heat pack or a heating pad. ?Put a towel between your skin and the heat source. ?Leave the heat on for 20 30 minutes. ?Remove the heat if your skin turns bright red. This is especially important if you cannot feel pain, heat, or cold. You can get burned. Eating and drinking Drink enough fluid to keep your pee (urine) clear or pale yellow. Return to your normal diet as told by your doctor. Avoid heavy or fried foods that are hard to digest. Avoid drinking alcohol for as long as told by your doctor. Contact a doctor if: You have blood in your poop (stool) 2 3 days after the procedure. Get help right away if: You have more than a small amount of blood in your poop. You see large clumps of tissue (blood clots) in your poop. Your belly is swollen. You feel sick to your stomach (nauseous). You throw up (vomit). You have a fever. You have belly pain that gets worse, and medicine does not help your pain. Summary After the procedure, it is common to have a small amount of blood in your poop. You may also have mild cramping and bloating in your belly. For the first 24 hours after the procedure, do not drive or use machinery, do not sign important documents, and do not drink alcohol. Get help right away if you have a lot of blood in your poop, feel sick to your stomach, have a fever, or have more belly pain. This information is not intended to replace advice given to you by your health care provider. Make sure you discuss any questions you have with your health care provider. Document Released: 04/07/2011 Document Revised: 01/03/2018 Document Reviewed: 11/27/2016 [employer] 2020 [employer] Follow Up Care 07/20/2021 14:12:24 With:GUS UGALDE MD, Surgery Address: [address] [facility] [address] [place] [address] [place] [address] [phone] When: Unknown Comments:call for a follow up appointment post colonoscopy [facility] documented as of this encounter (statuses as of 01/26/2022) [facility]ments Appointment Date:01/31/2021 09:30:00 AM Scheduled Provider:YANETH REYES DO Location:[facility] Appointment Type:PC Wellness Medicare Future Scheduled Tests Laboratory* Basic Metabolic Panel 05/17/20 * N-Terminal proBNP 06/14/21 * Lipid Profile 05/17/20 * Lipid Profile 06/14/21 * Hepatitis C Antibody IgG 01/28/20 Radiology* XR Spine Lumbar W/Obliques 4 Views 10/15/20 [facility] Evaluation + Plan note Future Appointments Appointment Date:03/03/2021 02:00:00 PM Scheduled Provider: Location:[facility] Appointment Type:COVID AMB VACCINE Appointment Date:07/25/2021 09:00:00 AM Scheduled Provider:YANETH REYES DO Location:[facility] Appointment Type:PC OV Future Scheduled Tests Laboratory* Basic Metabolic Panel 05/17/20 * Prostate Specific Antigen 01/31/21 * N-Terminal proBNP 06/14/21 * Lipid Profile 05/17/20 * Lipid Profile 06/14/21 * Hepatitis C Antibody IgG 01/31/21 Radiology* XR Spine Lumbar W/Obliques 4 Views 10/15/20 [facility] Evaluation + Plan note Future Appointments Appointment Date:06/17/2021 09:00:00 AM Scheduled Provider: Location:[facility] Appointment Type:CV OV Appointment Date:07/25/2021 09:00:00 AM Scheduled Provider:YANETH REYES DO Location:[facility] Appointment Type:PC OV Future Scheduled Tests Laboratory* Basic Metabolic Panel 05/17/20 * Prostate Specific Antigen 01/31/21 * Lipid Profile 05/17/20 * Hepatitis C Antibody IgG 01/31/21 Radiology* XR Spine Lumbar W/Obliques 4 Views 10/15/20 [facility] Evaluation + Plan note Future Appointments Appointment Date:07/28/2021 10:00:00 AM Scheduled Provider:YANETH REYES DO Location:[facility] Appointment Type:PC OV Diagnostic Tests Pending * Prostate Specific Antigen 07/27/21 Future Scheduled Tests Laboratory* Prostate Specific Antigen 01/31/21 * Hepatitis C Antibody IgG 01/31/21 * N-Terminal proBNP 12/17/21 Radiology* XR Spine Lumbar W/Obliques 4 Views 10/15/20 [facility] Evaluation + Plan note Future Appointments Appointment Date:02/02/2022 02:00:00 PM Scheduled Provider:YANETH REYES DO Location:[facility] Appointment Type:PC Wellness Medicare Future Scheduled Tests Laboratory* Prostate Specific Antigen 01/31/21 * Prostate Specific Antigen 07/28/21 * Thyroid Stimulating Hormone 07/28/21 * Free T4 07/28/21 * A1C Hemoglobin 07/28/21 * Complete Blood Count 07/28/21 * Free T3 07/28/21 * Lipid Profile 07/28/21 * Hepatitis C Antibody IgG 01/31/21 * Complete Metabolic Panel 07/28/21 * N-Terminal proBNP 12/17/21 Radiology* XR Spine Lumbar W/Obliques 4 Views 10/15/20 [facility] Evaluation + Plan note Future Appointments Appointment Date:01/09/2022 10:00:00 AM Scheduled Provider:YANETH REYES DO Location:[facility] Appointment Type:PC Acute Appointment Date:01/13/2022 09:45:00 AM Scheduled Provider: Location:[facility] Appointment Type:CV OV Appointment Date:02/02/2022 02:00:00 PM Scheduled Provider:YANETH REYES DO Location:[facility] Appointment Type:PC Wellness Medicare Future Scheduled Tests Laboratory* Prostate Specific Antigen 01/31/21 * Prostate Specific Antigen 07/28/21 * Thyroid Stimulating Hormone 07/28/21 * Free T4 07/28/21 * A1C Hemoglobin 07/28/21 * Complete Blood Count 07/28/21 * Free T3 07/28/21 * Lipid Profile 07/28/21 * Hepatitis C Antibody IgG 01/31/21 * Complete Metabolic Panel 07/28/21 [facility] Evaluation + Plan note Future Appointments Appointment Date:02/02/2022 02:00:00 PM Scheduled Provider:YANETH REYES DO Location:[facility] Appointment Type:[facility] Medicare Future Scheduled Tests Laboratory* Prostate Specific Antigen 01/31/21 * Lipid Profile 07/14/22 * Hepatitis C Antibody IgG 01/31/21 * N-Terminal proBNP 07/14/22 [facility] Evaluation + Plan note Future Appointments Appointment Date:07/05/2022 09:00:00 AM Scheduled Provider: Location:[facility] Appointment Type:CV OV Appointment Date:07/27/2022 08:30:00 AM Scheduled Provider:YANETH REYES DO Location:[facility] Appointment Type: OV Future Scheduled Tests Laboratory* Prostate Specific Antigen 02/02/22 * Thyroid Stimulating Hormone 02/02/22 * Free T4 02/02/22 * A1C Hemoglobin 02/02/22 * Complete Blood Count 02/02/22 * Free T3 02/02/22 * Lipid Profile 02/02/22 * Microalbumin Level Urine 02/02/22 * Complete Metabolic Panel 02/02/22 [facility] Evaluation + Plan note Future Appointments Appointment Date:02/06/2023 08:30:00 AM Scheduled Provider:YANETH REYES DO Location:[facility] Appointment Type:PC Wellness Medicare Appointment Date:02/14/2023 08:30:00 AM Scheduled Provider: Location:[facility] Appointment Type:CV OV Future Scheduled Tests Laboratory* Prostate Specific Antigen 01/27/23 * Thyroid Stimulating Hormone 01/27/23 * Free T4 01/27/23 * A1C Hemoglobin 01/27/23 * Complete Blood Count 01/27/23 * Lipid Profile 01/27/23 * Complete Metabolic Panel 01/27/23 [facility] Evaluation + Plan note Future Appointments Appointment Date:08/07/2023 08:30:00 AM Scheduled Provider:YANETH REYES DO Location:[facility] Appointment Type:PC OV Future Scheduled Tests Laboratory* Thyroid Stimulating Hormone 02/16/23 * Free T4 02/16/23 * Free T3 02/16/23 * N-Terminal proBNP 08/15/23 [facility] Evaluation + Plan note Future Appointments Appointment Date:08/07/2023 08:30:00 AM Scheduled Provider:YANETH REYES DO Location:[facility] Appointment Type: OV Future Scheduled Tests Laboratory* Magnesium Level 04/04/23 * Renal Function Panel 04/04/23 * Vitamin D Level 04/04/23 * N-Terminal proBNP 08/15/23 [facility] Evaluation note* Diagnosis Dry eye syndrome of both eyes- Primary S/P LASIK (laser assisted in situ keratomileusis) of both eyes Combined forms of age-related cataract of both eyes Other and combined forms of senile cataract Optic cupping of both eyes Vitreous floaters of both eyes documented in this encounter [facility] course Narrative No data available for this section [facility] Hospital Discharge instructions No data available for this section [facility] Progress note No data available for this section [facility] Medications Administered Section Active Administered Medications - up to 3 most recent administrations Medication Order MAR Action Action Date Dose Rate Site PHENYLephrine 2.5 % 1 Drop (AK-DILATE, TESSY-SYNEPHRINE) 1 Drop, BOTH EYES, DIRECTED, Starting on Lotus 01/26/22 at 1030, Until Lotus 01/26/22 at 2229, Administer for dilation PROTECT FROM LIGHT Given 01/26/2022 10:30 AM EST 1 Drop proparacaine 0.5 % 1 Drop (ALCAINE) 1 Drop, BOTH EYES, DIRECTED, Starting on Lotus 01/26/22 at 1030, Until Lotus 01/26/22 at 2229, Administer for pneumo tonometry, tonopen tonometry, or pachymetry. In the event of a proparacaine shortage, administer tetracaine 0.5% ophthalmic drops 1 drop in the left eye as directed for pneumo tonometry, tonopen tonometry, or pachymetry Given 01/26/2022 10:30 AM EST 1 Drop tropicamide 1 % 1 Drop (MYDRIACYL) 1 Drop, BOTH EYES, DIRECTED, Starting on Lotus 01/26/22 at 1030, Until Lotus 01/26/22 at 2229, Administer for dilation Given 01/26/2022 10:30 AM EST 1 Drop Summary Purpose Family History No Family History Records Found Advance Directives No Advanced Directives Records FoundNo Advanced Directives Records Found Additional Source Comments Care Team (unrecognized sect ion and content) Care Team Personnel Name: GUS UGALDE MD Position: P4 Physician - General Surgery Member Role: Surgeon Address: Address: [address] [place] [address] [facility] [place] [address]- [place] Name: YANETH REYES DO Position: P4 Physician - Primary Care Member Role: Primary Care Physician Address: Address: [address] [place] [address] [place] [address]- Name: DEEDEE CAMPBELL MD Position: P4 Physician - Cardiology Member Role: Restaurant Crew Member Address: Address: [address] [facility] [address] [facility] [place] [address]- [place] Name: RIKKI SIMMONS MD Position: P3 Physician - Urologist Member Role: Urologist Address: Address: [address] [facility] [address] [place] [address]- [place] Name: CHESTER MARINA, [facility] Member Role: Manager Water Address: Address: [address] [facility] [address] [place] [address]- [place] Name: ROBERT RENDON MD Position: Physician Member Role: Timber Management Professor Address: Address: [address] [facility] [place] [address]- [place] Care Team Related Persons Name: NORMAN ANAND Address: Home [address], [place] [id number] Name: LIGIA ANAND Care Team (unrecognized sect ion and content) Care Team Personnel Name: GUS UGALDE MD Position: P4 Physician - General Surgery Med Service: Laisha Pina M.D. Member Role: Surgeon Address: Address: [address] [facility] [address] [facility] [place] [address]- Name: YANETH REYES DO Position: P4 Physician - Primary Care Med Service: Active Provider Member Role: Primary Care Physician Address: Address: [address] [place] [address]- Name: DEEDEE CAMPBELL MD Position: P4 Physician - Cardiology Med Service: Active Provider Member Role: Restaurant Crew Member Address: Address: [facility] [facility] [address] [place] [address]- Name: RIKKI SIMMONS MD Position: P3 Physician - Urologist Med Service: Admitting Member Role: Urologist Address: Address: [address] [place] [address] [address] [place] [address]- [place] Name: CHESTER MARINA, [facility] Member Role: Manager Water Address: Address: [address] [place] [address] [address] [place] [address]- [place] Name: ROBERT RENDON MD Position: Physician Med Service: Admitting Member Role: Timber Management Professor Address: Address: [address] [facility] [place] [address]- Care Team Related Persons Name: NORMAN ANAND Address: Home [address], [place] [id number] Name: LIGIA ANAND Care Team Personnel Name: GUS UGALDE MD Position: P4 Physician - General Surgery Member Role: Surgeon Address: Address: [address] [facility] [address] [facility] [place] [address]- [place] Name: YANETH REYES DO Position: P4 Physician - Primary Care Member Role: Primary Care Physician Address: Address: [address] [place] [address]- Name: DEEDEE CAMPBELL MD Position: P4 Physician - Cardiology Member Role: Restaurant Crew Member Address: Address: [address] [facility] [address] [place] [id number]- [place] Name: RIKKI SIMMONS MD Position: P3 Physician - Urologist Member Role: Urologist Address: Address: [address] [facility] [address] [place] [address]- Name: CHESTER MARINA, [facility] Member Role: Manager Water Address: Address: [address] [facility] [address] [place] [address]- [place] Name: ROBERT RENDON MD Position: Physician Member Role: Timber Management Professor Address: Address: [address] [place] [address]- Care Team Related Persons Name: TRESSANORMAN FARRELL Address: Home [address] [place], [place] [phone] Name: LIGIA ANAND Source Comments (unrecognize d section and content) In the event this informatio n is protected by the Federal Confidentiality of Alcohol and Drug Abuse Patient Records regulations: The Federal rules restrict any use of the information to criminally investigate or prosecute any alcohol or drug abuse patient.[facility] Reason for Visit (unrecogniz ed section and content) (unrecognized sect ion and content) No Status Records FoundNo Status Records Found INFORMATION SOURCE (unrecogn ized section and content) DATE CREATED AUTHOR AUTHOR'S ORGANIZ ATION 04/01/2023 [facility] [place] FOR RECORDS PERTAINING TO PATIENTS WHO ARE OR HAVE BEEN ENROLLED IN A CHEMICAL DEPENDENCY/SUBSTANCEABUSE PROGRAM, SOME INFORMATION MAY BE OMITTED. This clinical summary was aggregated from multiple sources. Caution should be exercised in using it in the provision of clinical care. This summary normalizes information from multiple sources, and as a consequence, information in this document may materially change the coding, format and clinical context of patient data. In addition, data may be omitted in some cases. CLINICAL DECISIONS SHOULD BE BASED ON THE PRIMARY CLINICAL RECORDS. [employer] [facility]. provides no warranty or guarantee of the accuracy or completeness of information in this document.
[2023-05-03 11:02] LABS: Anion Gap 5 (5-15); BUN 17 mg/dL (7-18); BUN/Creat Ratio 13.8 RATIO (10-20); Calcium,Total 9.3 mg/dL (8.5-10.1); Chloride 109 mmol/L (98-107); Creatinine, Serum 1.23 mg/dL (0.70-1.30); EST Glomerular Filtration Rate 61 mL/min (>60); Est Glom Filt Rate - Afr Amer 73 mL/min (>60); Glucose 114 mg/dL (74-106); PSA,Total- Diagnostic 5.98 ng/mL (0.0-4.0); Potassium 4.3 mmol/L (3.5-5.1); Sodium Level 139 mmol/L (136-145)
== END | disposition home or self-care (01) ==
PROVIDERS: PCP Student in an Organized Health Care Education/Training Program; Referring Provider Urology; Visit Provider Urology
DX: R97.20 Elevated prostate specific antigen [PSA] (principal); C64.1 Malignant neoplasm of right kidney, except renal pelvis
CPT/HCPCS: 36415; 71046; 80048; 84153; 85027

== ENCOUNTER → 2023-11-08 | Outpatient (CLI) | payer MEDICARE, OTHER, SELFPAY ==
[2023-11-08 09:40] LABS: Hematocrit 41.2 % (40-54); Hemoglobin 13.3 g/dL (13.0-16.5); Mean Corp Hgb Conc 32.3 g/dL (32-36); Mean Corpuscular Hgb 31.7 pg (27.0-32.0); Mean Corpuscular Volume 98.3 fL (80-94); Mean Platelet Vol. 9.4 fl (6.2-12.0); Platelet Count 170 K/mm3 (150-450); RBC Distribution Width CV 12.8 % (11.6-14.6); RBC Distribution Width SD 45.7 fl (35.1-43.9); Red Blood Count 4.19 M/mm3 (4.6-6.2); White Blood Count 6.2 K/mm3 (4.4-11.0)
[2023-11-08 10:56] LABS: Anion Gap 4 (5-15); BUN 21 mg/dL (7-18); BUN/Creat Ratio 15.9 RATIO (10-20); Calcium,Total 9.4 mg/dL (8.5-10.1); Chloride 107 mmol/L (98-107); Creatinine, Serum 1.32 mg/dL (0.70-1.30); EST Glomerular Filtration Rate 56 mL/min (>60); Est Glom Filt Rate - Afr Amer 68 mL/min (>60); Glucose 126 mg/dL (74-106); Potassium 4.2 mmol/L (3.5-5.1); Sodium Level 138 mmol/L (136-145)
[2023-11-09 13:08] LABS: PSA, Free % 44.1 % (.)
== END | disposition home or self-care (01) ==
LOC: LAB 09:06
PROVIDERS: PCP Student in an Organized Health Care Education/Training Program; Referring Provider Urology; Visit Provider Urology
DX: R97.20 Elevated prostate specific antigen [PSA] (principal)
CPT/HCPCS: 36415; 80048; 84153; 84154; 85027

== ENCOUNTER → 2024-11-10 | Outpatient (CLI) | payer MEDICARE, OTHER, SELFPAY ==
[2024-11-10 11:38] LABS: Anion Gap 12 (5-15); BUN 18 mg/dL (4-19); BUN/Creat Ratio 15.6 RATIO (10-20); Calcium,Total 9.9 mg/dL (7.6-11.0); Carbon Dioxide 22.7 mmol/L (21.0-32.0); Chloride 104 mmol/L (98-108); Glucose 114 mg/dL (70-99); PSA,Total- Diagnostic 5.31 ng/mL (0.00-4.00); Potassium 4.2 mmol/L (3.3-5.1)
== END | disposition home or self-care (01) ==
LOC: LAB 09:29
PROVIDERS: PCP Student in an Organized Health Care Education/Training Program; Referring Provider Urology; Visit Provider Urology
DX: N40.1 Benign prostatic hyperplasia with lower urinary tract symptoms (principal)
CPT/HCPCS: 36415; 80048; 84153

== ENCOUNTER 2024-12-09 08:30 | Outpatient (RCR) | payer MEDICARE, OTHER, SELFPAY ==
--- NOTE | 2024-10-28 09:32 | HP.PTEVAL_ITS ---
Patient's Visit Information Visit Information Visit Information: VITO ANAND is a 79 year old M referred to Physical Therapy by Dr. Haroon Dean MD with a diagnosis of LUMBAR VERTEBRAE DECOMPRESSION OF SPINAL CORD. Date of Evaluation: 10/28/24 Physical Therapist: aRj Jefferson, PT, Cert MDT, OCS Visit Plan Frequency: 2x /Week Duration: 4 Weeks Plan: PT INTERVENTIONS AQUATIC THERAPY FOR LUMBAR ROM ,LE FLEXABILITY , DLS Subjective Subjective: This 79 y/o male present to physical therapy with L3-L4 Lumbar decompression on 08/29/[address] Dean at [facility]. Patient was d/c next day with rollator ~ 1 month but uses as needed at night or long distances walking. Initially no lifting 10# ,no BLT. Recently seen DR SOUTH as jorge ,lifting up to 20-30#. Patient is feeling better in back . But patient has right shoulder and knee pain. Patient stopped medication for pain gabapentin and ,muscle relaxer and oxycodone and Aggravating factors extended walking/standing ,unable to sleep in bed thus sleeps in recliner. Alleviating factors rest. Occasionally paresthesia /tingling in legs. Pain can affects sleeping in bed . Coughing/ sneezing -. Bowel/bladder -. Patient condition affects QOL and function. SOCIAL: single VOCATION: retired LESIURE: cards Objective Objective: POSTURE: mod forward posture ,trunk flexed GAIT: reciprocal pattern mod trunk forward reciprocal pattern PALAPTION: tender LS LUMBAR ROM: flexion min loss ,extension severe loss ,side glides mod loss FLEXABILITY: hamstrings mod tight MMT: quads/hams 4/5 ,hip flexion 4-/5 ,hip abduction 3+/5 ,ankle 4/5 Special Tests L/S Slump test left side: Negative L/S Slump test right side: Negative L/S Left Straight Leg Raise: Negative L/S Right Straight Leg Raise: Negative Balance/Special Test Scores Oswestry Low Back Score: 32 Goals Goal 1:: Patient to be I with HEP and Aquatics program Goal Time Frame: 4-6 Weeks Goal 2:: Patient to improve lumbar ROM for function of recovery to put on shoes Goal Time Frame: 4-6 Weeks Goal 3:: Patient to improve back oswestry by 5 points to improve QOL and function. Goal Time Frame: 4-6 Weeks Goal 4:: Patient to demonstrate 50% improvement with less pain and improved function Goal 5:: Patient to improve gait endurance w/o using rollator Goal Time Frame: 4-6 Weeks Rehabilitation Potential Physical Therapy Diagnosis: This patient underwent s/p lumbar L3-4 Decompression with decrease ROM ,weakness impairs gait and ADLS thus benefit from skilled PT Rehabilitation Potential: Good Anticipated Interventions Patient/Client Instruction: Educate patient on: Condition and Plan of Care For the Purpose of:: To decrease pain, To increase ROM, To improve muscle performance and motor function, To increase tolerance to activity/condition/position, To improve ability of physical actions for home/community/work/leisure, To improve health of tissue, To decrease soft tissue restriction, To increase flexibility/ROM, To improve endurance, To improve health and function and To improve tolerance to ADL's Therapeutic Exercise to Include: Strength training, Postural training, Flexibi lty training, In an aquatic setting and Dynamic Lumbar Stabilization For the Purpose of:: To decrease pain, To increase ROM, To improve muscle performance and motor function, To increase tolerance to activity/condition/position, To improve ability of physical actions for home/community/work/leisure, To increase flexibility/ROM, To improve endurance and To improve tolerance to ADL's Text: Thank you for the opportunity to evaluate your patient. For Medicare and Medicare HMO plans, please review the plan of care and approve it. It will need to be FAXED BACK to us at [phone] for Medicare purposes. For Medicare only, by signing this I certify the plan of care. Please let me know if there are questions or concerns regarding this plan of care. Physician Signature: Date:
--- NOTE | 2024-11-28 08:30 | HP.PTREVAL_ITS ---
Re-Evaluation Intro: Dr. Haroon Dean MD, It has been my pleasure to treat VITO ANAND over the last 9 visits for LUMBAR VERTEBRAE DECOMPRESSION OF SPINAL CORD. Please see the progress note below for an update on the physical therapy plan of care! Subjective Subjective: Doing good with Aquatic therapy is helping Sees next week -pain is less with activity - need with walker Objective Objective/Function: POSTURE: mod forward posture ,trunk flexed GAIT: reciprocal pattern mod trunk forward reciprocal pattern PALAPTION: tender LS LUMBAR ROM: flexion min loss ,extension severe loss ,side glides mod loss FLEXABILITY: hamstrings mod tight MMT: quads/hams 4/5 ,hip flexion 4/5 ,hip abduction 4-/5 ,ankle 4/5 Plan Plan Plan: 2 MORE SESSIONS ON LAND WITH MACHINE FOR GYM PROGRAM PT INTERVENTIONS FOR LUMBAR ROM ,LE FLEXABILITY , DLS AND ACTIVITY MODIFICATION Balance/Gait/Functional tests Balance/Special Test Scores Oswestry Low Back Score: 19 Goals Goals Goal 1:: Patient to be I with HEP and Aquatics program Goal Time Frame: 4-6 Weeks Goal Progress: Progressing Goal 2:: Patient to improve lumbar ROM for function of recovery to put on shoes Goal Time Frame: 4-6 Weeks Goal Progress: Progressing Goal 3:: Patient to improve back oswestry by 5 points to improve QOL and function. ( NEW GAOL) Goal Time Frame: 4-6 Weeks Goal 4:: Patient to demonstrate 70% improvement with less pain and improved function (NEW GOAL) Goal 5:: Patient to improve gait endurance w/o using rollator Goal Time Frame: 4-6 Weeks Goal Progress: Goal Met Anticipated Interventions Anticipated Interventions Patient/Client Instruction: Educate patient on: Condition and Plan of Care For the Purpose of:: To decrease pain, To increase ROM, To improve muscle performance and motor function, To increase tolerance to acti vity/condition/position, To improve ability of physical actions for home/community/work/leisure, To improve health of tissue, To decrease soft tissue restriction, To increase flexibility/ROM, To improve endurance, To improve health and function and To improve tolerance to ADL's Therapeutic Exercise to Include: Strength training, Postural training, Flexibilty training, In an aquatic setting and Dynamic Lumbar Stabilization For the Purpose of:: To decrease pain, To increase ROM, To improve muscle performance and motor function, To increase tolerance to activity/condition/position, To improve ability of physical actions for home/community/work/leisure, To increase flexibility/ROM, To improve endurance and To improve tolerance to ADL's Re-Evaluation Ending Re-evaluation ending: Please do not hesitate to contact me at [phone] by phone or if you have questions or concerns regarding this new plan of care! Sincerely, Raj Jefferson, PT, Cert MDT, OCS
--- NOTE | 2024-12-09 09:01 | HP.PTDCSUM ---
Discharge Summary D/C summary: It has been my pleasure to treat VITO ANAND referred by Dr. Haroon Dean MD, with the diagnosis of LUMBAR VERTEBRAE DECOMPRESSION OF SPINAL CORD for a total of 11 visit(s). Discharge Date: 12/09/24 Please see the following information for a summary of their discharge status. Subjective Subjective: Stated shoulder ex's with rows made shoulder pain next day so I dont want to do Pain LBP: Pain Intensity (Out of 10): 3 B KNEES: Pain Intensity (Out of 10): 3 Overall Improvement % Improvement: 60 Objective Objective/Function: Held shoulder LAE ,SEATED row ,but okay for mid rows trial bases later POSTURE: mod forward posture ,trunk flexed GAIT: reciprocal pattern mod trunk forward reciprocal pattern PALAPTION: tender LS LUMBAR ROM: flexion min loss ,extension severe loss ,side glides mod loss FLEXABILITY: hamstrings mod tight MMT: quads/hams 4/5 ,hip flexion 4/5 ,hip abduction 4-/5 ,ankle 4/5 Goals Goal 1:: Patient to be I with HEP and Aquatics program Goal Progress: Goal Met Goal 2:: Patient to improve lumbar ROM for function of recovery to put on shoes Goal Progress: Goal Met Goal 3:: Patient to improve back oswestry by 5 points to improve QOL and function. ( NEW GAOL) Goal 4:: Patient to demonstrate 70% improvement with less pain and improved function (NEW GOAL) Goal 5:: Patient to improve gait endurance w/o using rollator Goal Progress: Goal Met Plan Plan: D/C [place] for gym ex's D/C Information Discharge Comments: gym program and Aquatic therapy d/c sentence: If there are questions or concerns regarding this patient's physical therapy, please feel free to call me at [phone]. Thank you for the referral of this patient. Sincerely, Raj Jefferson, PT, Cert MDT, OCS Balance/Gait/Functional tests Balance/Special Test Scores Oswestry Low Back Score: 19 Improvement % Improvement: 60
== END 2024-12-09 19:00 | disposition home or self-care (01) ==
LOC: PT 08:30
PROVIDERS: PCP Student in an Organized Health Care Education/Training Program; Referring Provider Orthopaedic Surgery Orthopaedic Surgery of the Spine; Visit Provider Orthopaedic Surgery Orthopaedic Surgery of the Spine
DX: Z47.89 Encounter for other orthopedic aftercare (principal); Z90.89 Acquired absence of other organs
CPT/HCPCS: 97110; 97113; 97162; 97530